=== PATIENT | female | born 1945 | race Caucasian/White ===

== ENCOUNTER 2017-07-02 04:08 | Emergency (ER) | payer MEDICARE, OTHER, SELFPAY | END 2017-07-02 05:58 | disposition home or self-care (01) | PROVIDERS: Emergency Provider Emergency Medicine; Family Provider Family Medicine; PCP Family Medicine; Visit Provider Emergency Medicine | DX: R25.1 Tremor, unspecified (principal) | CPT/HCPCS: 99283 ==

== ENCOUNTER → 2017-07-16 18:02 | Outpatient (CLI) | payer MEDICARE, OTHER, SELFPAY | PROVIDERS: PCP Family Medicine; Visit Provider Student in an Organized Health Care Education/Training Program | DX: N05.9 Unspecified nephritic syndrome with unspecified morphologic changes (principal); R80.9 Proteinuria, unspecified; D64.9 Anemia, unspecified; N25.81 Secondary hyperparathyroidism of renal origin ==

== ENCOUNTER → 2017-10-10 12:47 | Outpatient (CLI) | payer MEDICARE, OTHER, SELFPAY ==
--- NOTE | 2017-10-10 | DI.MRI.S_ITS ---
PROCEDURE: MR HEAD/BRAIN WO CON INDICATIONS: DEMENTIA CVA TECHNIQUE: Non-contrast axial T1 spin echo, axial T2 fast spin echo, sagittal and axial FLAIR, coronal T2 fast spin echo, axial gradient echo, axial diffusion and ADC through the brain. COMPARISON: [facility], MR, BRAIN WITHOUT CONTRAST, 03/03/2014, 19:29. FINDINGS: Image quality: Diagnostic, with note made of motion artifact. CSF spaces: Ventricles appear symmetric in size and shape. Basal cisterns are patent. No extra-axial fluid collections. Brain: No intracranial bleeds or mass effects. There is cerebral volume loss for age. There are periventricular and deep white matter chronic small vessel ischemic changes. Brainstem appears normal. Diffusion-weighted images show no acute ischemic insults. No chronic ischemic insults. Normal intravascular flow voids are present. Skull and face: Calvarial bone marrow is normal in signal. Orbits are normal. Note is made of bilateral lens replacements. Sinuses: Sinuses and mastoids are clear. IMPRESSION: Unremarkable imaging study for age, without acute or subacute infarctions. Note is made of age-appropriate brain parenchymal volume loss and chronic small vessel ischemic changes. Dictated by: Lowell Devine M.D. on 10/10/2017 at 12:59 Approved by: Lowell Devine M.D. on 10/10/2017 at 13:01
== END ==
PROVIDERS: Family Provider Family Medicine; PCP Family Medicine; Visit Provider Specialist
DX: I63.9 Cerebral infarction, unspecified (principal); F03.90 Unspecified dementia, unspecified severity, without behavioral disturbance, psychotic disturbance, mood disturbance, and anxiety
CPT/HCPCS: 70551

== ENCOUNTER → 2017-11-05 11:15 | Outpatient (CLI) | payer MEDICARE, OTHER, SELFPAY ==
[2017-11-05 12:21] LABS: Hematocrit 36.1 % (36-46); Hemoglobin 12.1 g/dL (12.0-16.0)
[2017-11-05 12:55] LABS: BUN Creatinine Ratio 24.6 (6-22); Blood Urea Nitrogen 32 mg/dL (7-17); Calcium 10.6 mg/dL (8.4-10.2); Carbon Dioxide 32 mmol/L (22-32); Chloride 98 mmol/L (98-107); Estimated Glomerular Filt Rate 40.4 mL/min (>60); Glucose 94 mg/dL (80-110); HEMOLYSIS < 15 (0-50); Potassium 4.3 mmol/L (3.4-5.1); Sodium 142 mmol/L (137-145)
[2017-11-05 16:04] LABS: Creatinine Urine Random 57.5 mg/dL; Protein (Total) Urine Random 11 mg/dL (0-12); Protein Creatinine Ratio Urine 0.19 GRAM/24H
== END ==
PROVIDERS: PCP Family Medicine; Visit Provider Student in an Organized Health Care Education/Training Program
DX: N05.9 Unspecified nephritic syndrome with unspecified morphologic changes (principal); R80.9 Proteinuria, unspecified; D64.9 Anemia, unspecified
CPT/HCPCS: 36415; 80048; 82570; 84156; 85014; 85018

== ENCOUNTER → 2017-11-14 10:11 | Outpatient (CLI) | payer MEDICARE, OTHER, SELFPAY ==
[2017-11-14 10:20] LABS: Bacteria Urine None Seen; RBC Urine None Seen (0-5/HPF); WBC Urine None Seen (0-5/HPF)
[2017-11-14 11:16] LABS: Appearance Urine UA CLEAR; Bilirubin Urine UA NEGATIVE (NEGATIVE); Color Urine UA YELLOW; Glucose Urine UA NEGATIVE (Normal); Ketones Urine UA NEGATIVE (NEGATIVE); Leukocyte Esterase Urine UA NEGATIVE (NEGATIVE); Nitrite Urine UA Negative (Negative); Occult Blood Urine UA NEGATIVE (Negative); Protein Urine UA NEGATIVE (Negative); Urobilinogen Urine UA 0.2 E.U./dL (0.2)
[2017-11-14 11:24] LABS: Culture Indicated Urine Cult Not Indicated
[2017-11-14 11:25] LABS: Urine Comments Microscopic Normal
== END ==
PROVIDERS: PCP Family Medicine; Visit Provider Student in an Organized Health Care Education/Training Program
DX: N30.00 Acute cystitis without hematuria (principal)
CPT/HCPCS: 81001; 87086

== ENCOUNTER → 2017-11-15 12:19 | Outpatient (CLI) | payer MEDICARE, OTHER, SELFPAY ==
[2017-11-15 15:14] LABS: Creatinine Urine Random 24.6 mg/dL; Protein (Total) Urine Random 12 mg/dL (0-12); Protein Creatinine Ratio Urine 0.48 GRAM/24H
== END ==
PROVIDERS: PCP Family Medicine; Visit Provider Student in an Organized Health Care Education/Training Program
DX: R80.9 Proteinuria, unspecified (principal)
CPT/HCPCS: 82570; 84156

== ENCOUNTER → 2018-02-22 11:07 | Outpatient (CLI) | payer MEDICARE, OTHER, SELFPAY ==
--- NOTE | 2018-02-28 11:53 | PM.PFT.1 ---
Pulmonary Function Test Referral & Results Date Patient Seen: 02/22/18 Requesting provider: Josef Jolly Indication: Sarcoidosis, COPD Results: The spirometry demonstrates an FVC of 1.71 L which is 63% of predicted. The FEV1 was measured at 1.32 L which is 65% of predicted. The FEV1/FVC ratio was 77 which is 101% of predicted. No bronchodilator was administered Lung volumes show an SVC of 1.71 L which is 65% of predicted. The diffusing capacity was measured at 13.50 which is 62% of predicted. No hemoglobin value was provided, so no correction for potential anemia could be made, if appropriate. The maximum voluntary ventilation was reduced Interpretation: This study demonstrates moderately severe obstructive lung disease as well as moderately severe restrictive lung disease there is also significant reduction in diffusing capacity suggesting significant disease at the capillary alveolar level Compared to PFTs performed in December 2013, current spirometry shows a decline with previous FEV1 being 1.61 L currently 1.32 L Diffusing capacity is however essentially unchanged since 2013 Clinical correlation suggested
== END ==
PROVIDERS: PCP Family Medicine; Visit Provider Internal Medicine Cardiovascular Disease
DX: J44.9 Chronic obstructive pulmonary disease, unspecified (principal)
CPT/HCPCS: 94010; 94726; 94729

== ENCOUNTER → 2018-03-03 12:00 | Outpatient (CLI) | payer MEDICARE, OTHER, SELFPAY ==
[2018-03-03 12:25] LABS: Hematocrit 37.5 % (36-46); Hemoglobin 12.4 g/dL (12.0-16.0)
[2018-03-03 12:38] LABS: BUN Creatinine Ratio 27.5 (6-22); Blood Urea Nitrogen 33 mg/dL (7-17); Calcium 9.6 mg/dL (8.4-10.2); Carbon Dioxide 25 mmol/L (22-32); Chloride 102 mmol/L (98-107); Estimated Glomerular Filt Rate 44.3 mL/min (>60); Glucose 89 mg/dL (80-110); HEMOLYSIS < 15 (0-50); Potassium 4.2 mmol/L (3.4-5.1); Sodium 142 mmol/L (137-145)
[2018-03-09 12:29] LABS: Parathyroid Hormone Int 211 pg/mL (14-64)
== END ==
PROVIDERS: PCP Family Medicine; Visit Provider Student in an Organized Health Care Education/Training Program
DX: N05.9 Unspecified nephritic syndrome with unspecified morphologic changes (principal); D64.9 Anemia, unspecified; N25.81 Secondary hyperparathyroidism of renal origin; R80.9 Proteinuria, unspecified
CPT/HCPCS: 36415; 80048; 83970; 85014; 85018

== ENCOUNTER → 2018-03-04 11:18 | Outpatient (CLI) | payer MEDICARE, OTHER, SELFPAY ==
[2018-03-04 13:07] LABS: Creatinine Urine Random 38.8 mg/dL; Protein (Total) Urine Random 14 mg/dL (0-12); Protein Creatinine Ratio Urine 0.36 GRAM/24H
== END ==
PROVIDERS: PCP Family Medicine; Visit Provider Student in an Organized Health Care Education/Training Program
DX: R80.9 Proteinuria, unspecified (principal)
CPT/HCPCS: 82570; 84156

== ENCOUNTER 2018-03-28 13:32 | Emergency (ER) | payer MEDICARE, OTHER, SELFPAY ==
[2018-03-28 13:40] VITALS: BP 173/75; PULSE 82; RESP 23; TEMP 36.4; O2SAT 93
[2018-03-28 14:00] VITALS: BP 152/54; PULSE 77; RESP 16; O2SAT 96
[2018-03-28 14:20] LABS: Add Manual Diff / Slide Review NO; Basophils Absolute Auto 100 /uL (0-100); Eosinophils Absolute Auto 100 /uL (0-450); Eosinophils Percent Auto 1.5 % (2-4); Hematocrit 38.8 % (36-46); Hemoglobin 12.7 g/dL (12.0-16.0); Lymphocytes Absolute Auto 2000 /uL (1100-4500); Lymphocytes Percent Auto 30.7 % (25-40); Mean Corpuscular HGB Conc 32.6 % (30-36); Mean Corpuscular Hemoglobin 30.5 PG (26-34); Mean Corpuscular Volume 93.5 fL (80-100); Monocytes Absolute Auto 800 /uL (0-900); Monocytes Percent Auto 12.3 % (3-14); Neutrophils Absolute Auto 3600 /uL (1500-7000); Neutrophils Percent Auto 54.5 % (50-75); Platelet Count 249 X10^3/uL (150-400); Red Blood Cell Count 4.15 X10^6/uL (4.0-5.2); Red Cell Distribution Width 15.3 % (11.6-14.8); White Blood Cell Count 6.7 X10^3/uL (4.5-11.0)
[2018-03-28 14:29] LABS: Blood Urea Nitrogen 27 mg/dL (7-17); Calcium 9.8 mg/dL (8.4-10.2); Carbon Dioxide 27 mmol/L (22-32); Chloride 102 mmol/L (98-107); Estimated Glomerular Filt Rate > 60.0 mL/min (>60); Glucose 111 mg/dL (80-110); HEMOLYSIS 18 (0-50); Magnesium 1.6 mg/dL (1.6-2.3); Potassium 3.7 mmol/L (3.4-5.1); Sodium 139 mmol/L (137-145)
[2018-03-28 14:30] VITALS: BP 126/42; PULSE 60; RESP 16; O2SAT 96
--- NOTE | 2018-03-28 14:30 | ED.SEIZURE ---
HPI - Seizure General Chief Complaint: Seizure Stated Complaint: DIFFICULTY BREATHING, TREMORS Time Seen by Provider: 03/28/18 14:00 Source: patient and family Mode of arrival: ambulatory Limitations: no limitations History of Present Illness HPI Narrative: 73-year-old female, nonsmoker with history resting tremors, sarcoid presents with her with a chief complaint of worsening tremors and seizure-like activity over the past 5 months but a profound slip box changer the past 2 weeks. She has been taking 2 medications at 1 point helped this resting tremor but seem to be losing their effectiveness. The patient complains of the occasional headache and shortness of breath which are both unfortunately rather chronic for her. She denies chest pain and is not dizzy nor weak or lightheaded. Patient denies any fever chills but does have some mild nausea. Related Data Home Medications Medication Instructions Recorded Confirmed bumetanide 2 mg PO BID #0 03/17/16 03/28/18 benzonatate [Tessalon Perles] 100 mg PO BID #0 08/12/16 03/28/18 metoprolol tartrate 100 mg PO BID #0 08/12/16 03/28/18 ondansetron 4 mg PO PRN PRN #0 08/12/16 03/28/18 atorvastatin 80 mg tablet 80 mg PO DAILY 11/22/17 03/28/18 clopidogrel 75 mg tablet 75 mg PO DAILY 11/22/17 03/28/18 losartan 25 mg tablet 25 mg PO BEDTIME 11/22/17 03/28/18 oxycodone-acetaminophen 7.5 mg-325 1 tab PO Q6H PRN 11/22/17 03/28/18 mg tablet pregabalin 200 mg capsule 200 mg PO TID 11/22/17 03/28/18 sildenafil (antihypertensive) 20 20 mg PO TID 11/22/17 03/28/18 mg tablet L.acidophilus-Bifido.longum 1 cap PO QPM 03/28/18 03/28/18 [Probiotic Pearls] acetaminophen 1,000 mg PO TID 03/28/18 03/28/18 aspirin 81 mg PO QNOON 03/28/18 03/28/18 budesonide-formoterol [Symbicort] 2 puff INHALATION BID PRN 03/28/18 03/28/18 chlorzoxazone 500 mg PO BID 03/28/18 03/28/18 diphenhydramine-acetaminophen 2 tab PO BEDTIME 03/28/18 03/28/18 [Tylenol PM Extra Strength] estradiol-norethindrone acet 1 tab PO BEDTIME 03/28/18 03/28/18 [Mimvey] fexofenadine-pseudoephedrine 1 tab PO DAILY 03/28/18 03/28/18 [[place]-D 24 Hour] folic acid 1 mg PO QNOON 03/28/18 03/28/18 ipratropium-albuterol 3 ml INH Q4H PRN 03/28/18 03/28/18 magnesium 250 mg PO QNOON 03/28/18 03/28/18 omega-3 fatty acids-fish oil [Fish 300 mg PO BEDTIME 03/28/18 03/28/18 Oil] pantoprazole [Protonix] 40 mg PO BEDTIME 03/28/18 03/28/18 soy isofla-blk cohosh-mag bark 1 cap PO BEDTIME 03/28/18 03/28/18 [Estroven] tramadol 50 mg PO TID 03/28/18 03/28/18 Previous Rx's Medication Instructions Recorded nitrofurantoin monohyd/m-cryst 100 mg PO BID #14 cap 03/28/18 [Macrobid] primidone 50 mg PO BEDTIME #30 tab 03/28/18 Allergies Allergy/AdvReac Type Severity Reaction Status Date / Time tetanus toxoid, adsorbed Allergy Severe severe Verified 03/28/18 13:50 [TETANUS TOXOID, ADSORBED] swelling amoxicillin [From AUGMENTIN] Allergy Mild rash Verified 03/28/18 13:50 clavulanic acid Allergy Mild rash Verified 03/28/18 13:50 [From AUGMENTIN] lisinopril [LISINOPRIL] Allergy Mild cough Verified 03/28/18 13:50 pneumococcal vaccine Allergy Mild Severe arm Verified 03/28/18 13:50 [PNEUMOCOCCAL VACCINE] swelling minocycline [MINOCYCLINE] Allergy Unknown Verified 03/28/18 13:50 morphine [MORPHINE] Allergy Unknown Verified 03/28/18 13:50 sulindac [SULINDAC] Allergy Unknown Verified 03/28/18 13:50 tioconazole [TIOCONAZOLE] Allergy Unknown BURNING Verified 03/28/18 13:50 carisoprodol [CARISOPRODOL] AdvReac Mild numbness Verified 03/28/18 13:50 clotrimazole [CLOTRIMAZOLE] AdvReac Mild burning Verified 03/28/18 13:50 codeine [CODEINE] AdvReac Mild hallucinati Verified 03/28/18 13:50 ons miconazole [MICONAZOLE] AdvReac Mild intense Verified 03/28/18 13:50 burning nifedipine [NIFEDIPINE] AdvReac Mild flushing Verified 03/28/18 13:50 phenazopyridine AdvReac Mild extreme Verified 03/28/18 13:50 [PHENAZOPYRIDINE] fatigue Review of Systems Constitutional Denies chills, Denies fever(s), Denies lethargy and Denies weakness Eyes Denies change in vision, Denies eye discharge, Denies irritation and Denies loss of vision ENT Ears, Nose, Mouth, and Throat: Denies change in voice, Denies neck pain and Denies sore throat Cardiovascular Denies chest pain, Denies irregular heart rhythm, Denies lightheadedness, Denies palpitations, Denies dyspnea, Denies dyspnea on exertion and Denies orthopnea Respiratory Denies cough, Denies dyspnea, Denies dyspnea on exertion and Denies wheezing Gastrointestinal Gastrointestinal: Denies abdominal pain, Denies change in bowel habits, Denies diarrhea, Denies nausea and Denies vomiting Genitourinary Denies hematuria, Denies flank pain, Denies urinary incontinence and Denies urinary urgency Musculoskeletal Denies neck pain Integumentary/Breasts Denies pruritus, Denies erythema, Denies rash and Denies wounds Neurologic Denies confusion, Denies loss of vision, Reports tremor(s) and Denies weakness Psychiatric Denies anxiety, Denies confusion, Denies depression, Denies homicidal ideation and Denies suicidal ideation Endocrine Denies palpitations Hematologic/Lymphatic Denies easy bruising Allergic/Immunologic Denies wheezing [facility] Medical History Coronary artery disease (Chronic) Fibromyalgia (Chronic) Hypertension (Chronic) Leukocytosis (Chronic) Oxygen dependent (Chronic) Sarcoidosis (Chronic) Tachycardia (Chronic) Surgical History History of surgery (Resolved ~2015) Status post surgery (03/15/10) Social History marital status: Smoking Status: Never smoker alcohol intake: never substance use type: does not use Exam Narrative Exam Narrative: GENERAL: This is a well-nourished, well-developed patient, in mild distress. HEAD: 73-year-old female, resting comfortably, visibly frustrated from her resting tremor EYES: Pupils equal round and reactive. Extraocular motions intact. No scleral icterus. No injection or drainage. Obese ENT: Nose without bleeding, purulent drainage or septal hematoma. Throat without erythema, tonsillar hypertrophy or exudate. Uvula midline. Airway patent. NECK: Trachea midline. No JVD or lymphadenopathy. Supple, nontender, no meningeal signs. CARDIOVASCULAR: Regular rate and rhythm without murmurs, gallops, or rubs. RESPIRATORY: Clear to auscultation. Breath sounds equal bilaterally. No wheezes, rales, or rhonchi. GASTROINTESTINAL: Abdomen soft, non-tender, nondistended. No hepato-splenomegaly, or palpable masses. No guarding. EXTREMITIES: No clubbing, cyanosis, or edema. No joint tenderness, effusion, or edema noted. BACK: Nontender without deformity or crepitance. No flank tenderness. NEURO: AOx3. Resting tremor SKIN: No rash or erythema. Initial Vital Signs Initial Vital Signs: Vital Signs Temperature 97.5 F L 03/28/18 13:40 Pulse Rate 82 03/28/18 13:40 Respiratory Rate 23 03/28/18 13:40 Blood Pressure 173/75 H 03/28/18 13:40 Pulse Oximetry 93 03/28/18 13:40 Course Orders Ordered: ED Orders 03/28/18 14:09 B Type Natriuretic Peptide Stat Basic Metabolic Panel Stat Complete Blood Count AUTO DIFF Stat Magnesium Stat Prolactin Stat Troponin & CK Cardiac Panel Stat 03/28/18 14:54 XR chest 1V Stat Consultations Consultation #1: call to [facility], whom recommends addition of Primidone and follow up within 7 days Vital Signs - 8 hr 03/28/18 13:40 03/28/18 14:00 03/28/18 14:30 Temperature 97.5 F L Pulse Rate 82 77 60 Respiratory Rate 23 16 16 Blood Pressure 173/75 H Blood Pressure [Left Arm] 152/54 H 126/42 L Pulse Oximetry 93 96 96 03/28/18 15:00 03/28/18 15:47 Temperature Pulse Rate 72 78 Respiratory Rate 22 14 Blood Pressure Blood Pressure [Left Arm] 143/67 H 161/59 H Pulse Oximetry 95 97 MDM - Seizure Lab Data Result diagrams: 03/28/18 14:09 03/28/18 14:09 Lab Results 03/28/18 03/28/18 03/28/18 Range/Units 14:09 14:09 14:09 WBC 6.7 (4.5-11.0) X10^3/uL RBC 4.15 (4.0-5.2) X10^6/uL Hgb 12.7 (12.0-16.0) g/dL Hct 38.8 (36-46) % MCV 93.5 (80-100) fL MCH 30.5 (26-34) PG MCHC 32.6 (30-36) % RDW 15.3 H (11.6-14.8) % Plt Count 249 (150-400) X10^3/uL Neut % (Auto) 54.5 (50-75) % Lymph % (Auto) 30.7 (25-40) % [place] % (Auto) 12.3 (3-14) % Eos % (Auto) 1.5 L (2-4) % Baso % (Auto) 1.0 (0-2) % Neut # (Auto) 3600 (5474-2691) /uL Lymph # (Auto) 2000 (6873-7370) /uL [place] # (Auto) 800 (0-900) /uL Eos # (Auto) 100 (0-450) /uL Baso # (Auto) 100 (0-100) /uL Sodium 139 (137-145) mmol/L Potassium 3.7 (3.4-5.1) mmol/L Chloride 102 (98-107) mmol/L Carbon Dioxide 27 (22-32) mmol/L BUN 27 H (7-17) mg/dL Creatinine 0.90 (0.52-1.04) mg/dL Estimated GFR > 60.0 (>60) mL/min BUN/Creatinine Ratio 30.0 H (6-22) Glucose 111 H (80-110) mg/dL Calcium 9.8 (8.4-10.2) mg/dL Magnesium 1.6 (1.6-2.3) mg/dL Total Creatine Kinase 32 (30-135) U/L CK-MB (CK-2) TNP CK-MB (CK-2) Rel Index TNP Troponin I 0.056 H (0.01-0.034) ng/mL B-Natriuretic Peptide (<100) Prolactin 19.4 H (3.0-18.6) ng/mL Urine RBC (0-5/HPF) Urine WBC (0-5/HPF) Ur Squamous Epith Cells Urine Bacteria (None) Ur Culture Indicated? 03/28/18 03/28/18 Range/Units 14:09 Unknown WBC (4.5-11.0) X10^3/uL RBC (4.0-5.2) X10^6/uL Hgb (12.0-16.0) g/dL Hct (36-46) % MCV (80-100) fL MCH (26-34) PG MCHC (30-36) % RDW (11.6-14.8) % Plt Count (150-400) X10^3/uL Neut % (Auto) (50-75) % Lymph % (Auto) (25-40) % [place] % (Auto) (3-14) % Eos % (Auto) (2-4) % Baso % (Auto) (0-2) % Neut # (Auto) (7859-1763) /uL Lymph # (Auto) (4816-9924) /uL [place] # (Auto) (0-900) /uL Eos # (Auto) (0-450) /uL Baso # (Auto) (0-100) /uL Sodium (137-145) mmol/L Potassium (3.4-5.1) mmol/L Chloride (98-107) mmol/L Carbon Dioxide (22-32) mmol/L BUN (7-17) mg/dL Creatinine (0.52-1.04) mg/dL Estimated GFR (>60) mL/min BUN/Creatinine Ratio (6-22) Glucose (80-110) mg/dL Calcium (8.4-10.2) mg/dL Magnesium (1.6-2.3) mg/dL Total Creatine Kinase (30-135) U/L CK-MB (CK-2) CK-MB (CK-2) Rel Index Troponin I (0.01-0.034) ng/mL B-Natriuretic Peptide < 100 (<100) Prolactin (3.0-18.6) ng/mL Urine RBC None seen (0-5/HPF) Urine WBC 5-10/hpf H (0-5/HPF) Ur Squamous Epith Cells 5-10 /hpf H Urine Bacteria Moderate (10-30) H (None) Ur Culture Indicated? Cult not indicated Urine Dip Bedside Urine Glucose Negative Bedside Urine Bilirubin - Negative Bedside Urine Ketone - Negative Urine Specific [place] 1.015 Bedside Urine Occult Blood - Negative Bedside Urine pH 6.0 Bedside Urine Protein - Negative Bedside Urine Urobilinogen - Negative Bedside Urine Nitrite - Negative Bedside Urine Leukocytes ++ 125 Esterase Discharge Plan Departure Patient Disposition: Home Clinical Impression: Tremor Discharge Date/Time: 03/28/18 16:23 Interventions: ED Discharge Assessment Last Done: 03/28/18 15:54 Instructions: DI for Benign Essential Tremor Activity Restrictions/Additional Instructions: *You have been diagnosed with [ worsening generalized tremor] *What to do: *Take medications as directed: Prescription has been electronically transmitted to [employer] at your request *Follow up with your primary care provider in 2-3 days, call for an appointment. Let them know you were seen in the Emergency Department and that we ask that you be seen in follow up *Return to ER if you should have any new, worsening or concerning symptoms Prescriptions: New primidone 50 mg tablet 50 mg PO BEDTIME Qty: 30 RF: 0 nitrofurantoin monohyd/m-cryst [Macrobid] 100 mg capsule 100 mg PO BID Qty: 14 RF: 0 No Action bumetanide 1 MG tablet 2 mg PO BID Qty: 0 RF: 0 benzonatate [Tessalon Perles] 100 MG capsule 100 mg PO BID Qty: 0 RF: 0 metoprolol tartrate 100 MG tablet 100 mg PO BID Qty: 0 RF: 0 ondansetron 4 MG tablet,disintegrating 4 mg PO PRN PRN (Reason: Nausea) Qty: 0 RF: 0 atorvastatin 80 mg tablet 80 mg PO DAILY RF: 0 pregabalin [Lyrica] 200 mg capsule 200 mg PO TID RF: 0 losartan 25 mg tablet 25 mg PO BEDTIME RF: 0 sildenafil (antihypertensive) 20 mg tablet 20 mg PO TID RF: 0 oxycodone-acetaminophen 7.5-325 mg tablet 1 tab PO Q6H PRN (Reason: PAIN) RF: 0 clopidogrel [Plavix] 75 mg tablet 75 mg PO DAILY RF: 0 chlorzoxazone 500 mg tablet 500 mg PO BID RF: 0 aspirin 81 mg Tablet,Delayed Release (Dr/Ec) 81 mg PO QNOON RF: 0 acetaminophen 500 mg Tablet 1,000 mg PO TID RF: 0 magnesium 250 mg Tablet 250 mg PO QNOON RF: 0 diphenhydramine-acetaminophen [Tylenol PM Extra Strength] 25-500 mg Tablet 2 tab PO BEDTIME RF: 0 omega-3 fatty acids-fish oil [Fish Oil] 300-1,000 mg Capsule 300 mg PO BEDTIME RF: 0 budesonide-formoterol [Symbicort] 160-4.5 mcg/actuation Hfa Aerosol Inhaler 2 puff INHALATION BID PRN (Reason: Shortness Of Breath) RF: 0 L.acidophilus-Bifido.longum [Probiotic Pearls] 15 mg (1 billion cell) Capsule,Delayed Release(Dr/Ec) 1 cap PO QPM RF: 0 soy isofla-blk cohosh-mag bark [Estroven] 155 mg Capsule 1 cap PO BEDTIME RF: 0 ipratropium-albuterol 3 ML solution for nebulization 3 ml INH Q4H PRN (Reason: Shortness Of Breath) RF: 0 estradiol-norethindrone acet [Mimvey] 1-0.5 mg tablet 1 tab PO BEDTIME RF: 0 tramadol 50 MG tablet 50 mg PO TID RF: 0 pantoprazole [Protonix] 40 MG tablet,delayed release (DR/EC) 40 mg PO BEDTIME RF: 0 folic acid 1 mg tablet 1 mg PO QNOON RF: 0 fexofenadine-pseudoephedrine [[place]-D 24 Hour] 180-240 mg tablet extended release 24 hr 1 tab PO DAILY RF: 0 Referrals: Pedro Lynn MD [Primary Care Provider] -
[2018-03-28 14:46] LABS: Prolactin 19.4 ng/mL (3.0-18.6)
--- NOTE | 2018-03-28 14:54 | DI.RAD.S_ITS ---
PROCEDURE: XR CHEST 1V INDICATIONS: shortness of breath TECHNIQUE: One view of the chest was acquired. COMPARISON: [facility], , CHEST 1 VIEW, 08/12/2016, 17:10. FINDINGS: Surgical changes and devices: None. Lungs and pleura: No pleural effusions or pneumothorax. Lungs are clear. Mediastinum: Mediastinal contours appear normal. Heart size is normal. Probable coronary calcifications project over the left heart are not changed compared to the prior examination.. Bones and chest wall: No suspicious bony lesions. Overlying soft tissues appear unremarkable. IMPRESSION: No acute cardiopulmonary disease process. Dictated by: Stacey Cheng MD, PhD on 03/28/2018 at 16:06 Approved by: Stacey Cheng MD, PhD on 03/28/2018 at 16:16
[2018-03-28 15:00] VITALS: BP 143/67; PULSE 71; PULSE 72; RESP 15; RESP 22; O2SAT 95
--- NOTE | 2018-03-28 15:07 | ED_ITS ---
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 She has been taking 2 medications at 1 point helped this resting tremor but seem to be losing their effectiveness. The patient complains of the occasional headache and shortness of breath which are both unfortunately rather chronic for her. She denies chest pain and is not dizzy nor weak or lightheaded. Patient denies any fever chills but does have some mild nausea. Related Data Home Medications Medication Instructions Recorded Confirmed bumetanide 2 mg PO BID #0 03/17/16 03/28/18 benzonatate [Tessalon Perles] 100 mg PO BID #0 08/12/16 03/28/18 metoprolol tartrate 100 mg PO BID #0 08/12/16 03/28/18 ondansetron 4 mg PO PRN PRN #0 08/12/16 03/28/18 atorvastatin 80 mg tablet 80 mg PO DAILY 11/22/17 03/28/18 clopidogrel 75 mg tablet 75 mg PO DAILY 11/22/17 03/28/18 losartan 25 mg tablet 25 mg PO BEDTIME 11/22/17 03/28/18 oxycodone-acetaminophen 7.5 mg-325 1 tab PO Q6H PRN 11/22/17 03/28/18 mg tablet pregabalin 200 mg capsule 200 mg PO TID 11/22/17 03/28/18 sildenafil (antihypertensive) 20 20 mg PO TID 11/22/17 03/28/18 mg tablet L.acidophilus-Bifido.longum 1 cap PO QPM 03/28/18 03/28/18 [Probiotic Pearls] acetaminophen 1,000 mg PO TID 03/28/18 03/28/18 aspirin 81 mg PO QNOON 03/28/18 03/28/18 budesonide-formoterol [Symbicort] 2 puff INHALATION BID PRN 03/28/18 03/28/18 chlorzoxazone 500 mg PO BID 03/28/18 03/28/18 diphenhydramine-acetaminophen 2 tab PO BEDTIME 03/28/18 03/28/18 [Tylenol PM Extra Strength] estradiol-norethindrone acet 1 tab PO BEDTIME 03/28/18 03/28/18 [Mimvey] fexofenadine-pseudoephedrine 1 tab PO DAILY 03/28/18 03/28/18 [Keya-D 24 Hour] folic acid 1 mg PO QNOON 03/28/18 03/28/18 ipratropium-albuterol 3 ml INH Q4H PRN 03/28/18 03/28/18 magnesium 250 mg PO QNOON 03/28/18 03/28/18 omega-3 fatty acids-fish oil [Fish 300 mg PO BEDTIME 03/28/18 03/28/18 Oil] pantoprazole [Protonix] 40 mg PO BEDTIME 03/28/18 03/28/18 soy isofla-blk cohosh-mag bark 1 cap PO BEDTIME 03/28/18 03/28/18 [Estroven] tramadol 50 mg PO TID 03/28/18 03/28/18 Previous Rx's Medication Instructions Recorded nitrofurantoin monohyd/m-cryst 100 mg PO BID #14 cap 03/28/18 [Macrobid] primidone 50 mg PO BEDTIME #30 tab 03/28/18 Allergies Allergy/AdvReac Type Severity Reaction Status Date / Time tetanus toxoid, adsorbed Allergy Severe severe Verified 03/28/18 13:50 [TETANUS TOXOID, ADSORBED] swelling amoxicillin [From AUGMENTIN] Allergy Mild rash Verified 03/28/18 13:50 clavulanic acid Allergy Mild rash Verified 03/28/18 13:50 [From AUGMENTIN] lisinopril [LISINOPRIL] Allergy Mild cough Verified 03/28/18 13:50 pneumococcal vaccine Allergy Mild Severe arm Verified 03/28/18 13:50 [PNEUMOCOCCAL VACCINE] swelling minocycline [MINOCYCLINE] Allergy Unknown Verified 03/28/18 13:50 morphine [MORPHINE] Allergy Unknown Verified 03/28/18 13:50 sulindac [SULINDAC] Allergy Unknown Verified 03/28/18 13:50 tioconazole [TIOCONAZOLE] Allergy Unknown BURNING Verified 03/28/18 13:50 carisoprodol [CARISOPRODOL] AdvReac Mild numbness Verified 03/28/18 13:50 clotrimazole [CLOTRIMAZOLE] AdvReac Mild burning Verified 03/28/18 13:50 codeine [CODEINE] AdvReac Mild hallucinati Verified 03/28/18 13:50 ons miconazole [MICONAZOLE] AdvReac Mild intense Verified 03/28/18 13:50 burning nifedipine [NIFEDIPINE] AdvReac Mild flushing Verified 03/28/18 13:50 phenazopyridine AdvReac Mild extreme Verified 03/28/18 13:50 [PHENAZOPYRIDINE] fatigue Review of Systems Constitutional Denies chills, Denies fever(s), Denies lethargy and Denies weakness Eyes Denies change in vision, Denies eye discharge, Denies irritation and Denies loss of vision ENT Ears, Nose, Mouth, and Throat: Denies change in voice, Denies neck pain and Denies sore throat Cardiovascular Denies chest pain, Denies irregular heart rhythm, Denies lightheadedness, Denies palpitations, Denies dyspnea, Denies dyspnea on exertion and Denies orthopnea Respiratory Denies cough, Denies dyspnea, Denies dyspnea on exertion and Denies wheezing Gastrointestinal Gastrointestinal: Denies abdominal pain, Denies change in bowel habits, Denies diarrhea, Denies nausea and Denies vomiting Genitourinary Denies hematuria, Denies flank pain, Denies urinary incontinence and Denies urinary urgency Musculoskeletal Denies neck pain Integumentary/Breasts Denies pruritus, Denies erythema, Denies rash and Denies wounds Neurologic Denies confusion, Denies loss of vision, Reports tremor(s) and Denies weakness Psychiatric Denies anxiety, Denies confusion, Denies depression, Denies homicidal ideation and Denies suicidal ideation Endocrine Denies palpitations Hematologic/Lymphatic Denies easy bruising Allergic/Immunologic Denies wheezing [facility] History Coronary artery disease (Chronic) Fibromyalgia (Chronic) Hypertension (Chronic) Leukocytosis (Chronic) Oxygen dependent (Chronic) Sarcoidosis (Chronic) Tachycardia (Chronic) Surgical History History of surgery (Resolved ~2015) Status post surgery (03/15/10) Social History marital status: Smoking Status: Never smoker alcohol intake: never substance use type: does not use Exam Narrative Exam Narrative: GENERAL: This is a well-nourished, well-developed patient, in mild distress. HEAD: 73-year-old female, resting comfortably, visibly frustrated from her resting tremor EYES: Pupils equal round and reactive. Extraocular motions intact. No scleral icterus. No injection or drainage. Obese ENT: Nose without bleeding, purulent drainage or septal hematoma. Throat without erythema, tonsillar hypertrophy or exudate. Uvula midline. Airway patent. NECK: Trachea midline. No JVD or lymphadenopathy. Supple, nontender, no meningeal signs. CARDIOVASCULAR: Regular rate and rhythm without murmurs, gallops, or rubs. RESPIRATORY: Clear to auscultation. Breath sounds equal bilaterally. No wheezes , rales, or rhonchi. GASTROINTESTINAL: Abdomen soft, non-tender, nondistended. No hepato-splenomegaly , or palpable masses. No guarding. EXTREMITIES: No clubbing, cyanosis, or edema. No joint tenderness, effusion, or edema noted. BACK: Nontender without deformity or crepitance. No flank tenderness. NEURO: AOx3. Resting tremor SKIN: No rash or erythema. Initial Vital Signs Initial Vital Signs: Vital Signs Temperature 97.5 F L 03/28/18 13:40 Pulse Rate 82 03/28/18 13:40 Respiratory Rate 23 03/28/18 13:40 Blood Pressure 173/75 H 03/28/18 13:40 Pulse Oximetry 93 03/28/18 13:40 Course Orders Ordered: ED Orders 03/28/18 14:09 B Type Natriuretic Peptide Stat Basic Metabolic Panel Stat Complete Blood Count AUTO DIFF Stat Magnesium Stat Prolactin Stat Troponin & CK Cardiac Panel Stat 03/28/18 14:54 XR chest 1V Stat Consultations Consultation #1: call to [facility], whom recommends addition of Primidone and follow up within 7 days Vital Signs - 8 hr 03/28/18 13:40 03/28/18 14:00 03/28/18 14:30 Temperature 97.5 F L Pulse Rate 82 77 60 Respiratory Rate 23 16 16 Blood Pressure 173/75 H Blood Pressure [Left Arm] 152/54 H 126/42 L Pulse Oximetry 93 96 96 03/28/18 15:00 03/28/18 15:47 Temperature Pulse Rate 72 78 Respiratory Rate 22 14 Blood Pressure Blood Pressure [Left Arm] 143/67 H 161/59 H Pulse Oximetry 95 97 MDM - Seizure Lab Data Result diagrams: 03/28/18 14:09 03/28/18 14:09 Lab Results 03/28/18 03/28/18 03/28/18 Range/Units 14:09 14:09 14:09 WBC 6.7 (4.5-11.0) X10^3/uL RBC 4.15 (4.0-5.2) X10^6/uL Hgb 12.7 (12.0-16.0) g/dL Hct 38.8 (36-46) % MCV 93.5 (80-100) fL MCH 30.5 (26-34) PG MCHC 32.6 (30-36) % RDW 15.3 H (11.6-14.8) % Plt Count 249 (150-400) X10^3/uL Neut % (Auto) 54.5 (50-75) % Lymph % (Auto) 30.7 (25-40) % Posey % (Auto) 12.3 (3-14) % Eos % (Auto) 1.5 L (2-4) % Baso % (Auto) 1.0 (0-2) % Neut # (Auto) 3600 (6649-6580) /uL Lymph # (Auto) 2000 (0442-5723) /uL Posey # (Auto) 800 (0-900) /uL Eos # (Auto) 100 (0-450) /uL Baso # (Auto) 100 (0-100) /uL Sodium 139 (137-145) mmol/L Potassium 3.7 (3.4-5.1) mmol/L Chloride 102 (98-107) mmol/L Carbon Dioxide 27 (22-32) mmol/L BUN 27 H (7-17) mg/dL Creatinine 0.90 (0.52-1.04) mg/dL Estimated GFR > 60.0 (>60) mL/min BUN/Creatinine Ratio 30.0 H (6-22) Glucose 111 H (80-110) mg/dL Calcium 9.8 (8.4-10.2) mg/dL Magnesium 1.6 (1.6-2.3) mg/dL Total Creatine Kinase 32 (30-135) U/L CK-MB (CK-2) TNP CK-MB (CK-2) Rel Index TNP Troponin I 0.056 H (0.01-0.034) ng/mL B-Natriuretic Peptide (<100) Prolactin 19.4 H (3.0-18.6) ng/mL Urine RBC (0-5/HPF) Urine WBC (0-5/HPF) Ur Squamous Epith Cells Urine Bacteria (None) Ur Culture Indicated? 03/28/18 03/28/18 Range/Units 14:09 Unknown WBC (4.5-11.0) X10^3/uL RBC (4.0-5.2) X10^6/uL Hgb (12.0-16.0) g/dL Hct (36-46) % MCV (80-100) fL MCH (26-34) PG MCHC (30-36) % RDW (11.6-14.8) % Plt Count (150-400) X10^3/uL Neut % (Auto) (50-75) % Lymph % (Auto) (25-40) % Posey % (Auto) (3-14) % Eos % (Auto) (2-4) % Baso % (Auto) (0-2) % Neut # (Auto) (4117-0194) /uL Lymph # (Auto) (9618-7066) /uL Posey # (Auto) (0-900) /uL Eos # (Auto) (0-450) /uL Baso # (Auto) (0-100) /uL Sodium (137-145) mmol/L Potassium (3.4-5.1) mmol/L Chloride (98-107) mmol/L Carbon Dioxide (22-32) mmol/L BUN (7-17) mg/dL Creatinine (0.52-1.04) mg/dL Estimated GFR (>60) mL/min BUN/Creatinine Ratio (6-22) Glucose (80-110) mg/dL Calcium (8.4-10.2) mg/dL Magnesium (1.6-2.3) mg/dL Total Creatine Kinase (30-135) U/L CK-MB (CK-2) CK-MB (CK-2) Rel Index Troponin I (0.01-0.034) ng/mL B-Natriuretic Peptide < 100 (<100) Prolactin (3.0-18.6) ng/mL Urine RBC None seen (0-5/HPF) Urine WBC 5-10/hpf H (0-5/HPF) Ur Squamous Epith Cells 5-10 /hpf H Urine Bacteria Moderate (10-30) H (None) Ur Culture Indicated? Cult not indicated Urine Dip Bedside Urine Glucose Negative Bedside Urine Bilirubin - Negative Bedside Urine Ketone - Negative Urine Specific Harvey 1.015 Bedside Urine Occult Blood - Negative Bedside Urine pH 6.0 Bedside Urine Protein - Negative Bedside Urine Urobilinogen - Negative Bedside Urine Nitrite - Negative Bedside Urine Leukocytes ++ 125 Esterase Discharge Plan Departure Patient Disposition: Home Clinical Impression: Tremor Discharge Date/Time: 03/28/18 16:23 Interventions: ED Discharge Assessment Last Done: 03/28/18 15:54 Instructions: DI for Benign Essential Tremor Activity Restrictions/Additional Instructions: *You have been diagnosed with [ worsening generalized tremor] *What to do: *Take medications as directed: Prescription has been electronically transmitted to [facility] at your request *Follow up with your primary care provider in 2-3 days, call for an appointment. Let them know you were seen in the Emergency Department and that we ask that you be seen in follow up *Return to ER if you should have any new, worsening or concerning symptoms Prescriptions: New primidone 50 mg tablet 50 mg PO BEDTIME Qty: 30 RF: 0 nitrofurantoin monohyd/m-cryst [Macrobid] 100 mg capsule 100 mg PO BID Qty: 14 RF: 0 No Action bumetanide 1 MG tablet 2 mg PO BID Qty: 0 RF: 0 benzonatate [Tessalon Perles] 100 MG capsule 100 mg PO BID Qty: 0 RF: 0 metoprolol tartrate 100 MG tablet 100 mg PO BID Qty: 0 RF: 0 ondansetron 4 MG tablet,disintegrating 4 mg PO PRN PRN (Reason: Nausea) Qty: 0 RF: 0 atorvastatin 80 mg tablet 80 mg PO DAILY RF: 0 pregabalin [Lyrica] 200 mg capsule 200 mg PO TID RF: 0 losartan 25 mg tablet 25 mg PO BEDTIME RF: 0 sildenafil (antihypertensive) 20 mg tablet 20 mg PO TID RF: 0 oxycodone-acetaminophen 7.5-325 mg tablet 1 tab PO Q6H PRN (Reason: PAIN) RF: 0 clopidogrel [Plavix] 75 mg tablet 75 mg PO DAILY RF: 0 chlorzoxazone 500 mg tablet 500 mg PO BID RF: 0 aspirin 81 mg Tablet,Delayed Release (Dr/Ec) 81 mg PO QNOON RF: 0 acetaminophen 500 mg Tablet 1,000 mg PO TID RF: 0 magnesium 250 mg Tablet 250 mg PO QNOON RF: 0 diphenhydramine-acetaminophen [Tylenol PM Extra Strength] 25-500 mg Tablet 2 tab PO BEDTIME RF: 0 omega-3 fatty acids-fish oil [Fish Oil] 300-1,000 mg Capsule 300 mg PO BEDTIME RF: 0 budesonide-formoterol [Symbicort] 160-4.5 mcg/actuation Hfa Aerosol Inhaler 2 puff INHALATION BID PRN (Reason: Shortness Of Breath) RF: 0 L.acidophilus-Bifido.longum [Probiotic Pearls] 15 mg (1 billion cell) Capsule, Delayed Release(Dr/Ec) 1 cap PO QPM RF: 0 soy isofla-blk cohosh-mag bark [Estroven] 155 mg Capsule 1 cap PO BEDTIME RF: 0 ipratropium-albuterol 3 ML solution for nebulization 3 ml INH Q4H PRN (Reason: Shortness Of Breath) RF: 0 estradiol-norethindrone acet [Mimvey] 1-0.5 mg tablet 1 tab PO BEDTIME RF: 0 tramadol 50 MG tablet 50 mg PO TID RF: 0 pantoprazole [Protonix] 40 MG tablet,delayed release (DR/EC) 40 mg PO BEDTIME RF: 0 folic acid 1 mg tablet 1 mg PO QNOON RF: 0 fexofenadine-pseudoephedrine [Keya-D 24 Hour] 180-240 mg tablet extended release 24 hr 1 tab PO DAILY RF: 0 Referrals: Pedro Lynn MD [Primary Care Provider] -
[2018-03-28 15:09] LABS: Creatine Kinase 32 U/L (30-135)
[2018-03-28 15:20] LABS: B Type Natriuretic Peptide < 100 (<100)
[2018-03-28 15:22] LABS: Troponin I 0.056 ng/mL (0.01-0.034)
[2018-03-28 15:47] VITALS: BP 161/59; PULSE 78; RESP 14; O2SAT 97
[2018-03-28 15:56] LABS: RBC Urine None Seen (0-5/HPF)
[2018-03-28 16:00] LABS: Bacteria Urine Moderate (10-30); Culture Indicated Urine Cult Not Indicated; Squamous Epithelial Cell Urine 5-10 /HPF; WBC Urine 5-10/HPF (0-5/HPF)
== END 2018-03-28 16:23 | disposition home or self-care (01) ==
PROVIDERS: Emergency Provider Emergency Medicine; PCP Family Medicine
DX: R25.1 Tremor, unspecified (principal)
CPT/HCPCS: 36415; 36591; 71045; 80048; 81003; 81015; 82550; 83735; 83880; 84146; 84484; 85025; 87086; 99284

== ENCOUNTER 2018-04-23 10:06 | Inpatient (IN) | payer MEDICARE, OTHER, SELFPAY ==
[2018-04-23] VITALS (19 sets, daily range): BP systolic 110–150; BP diastolic 40–79; PULSE 66–106; RESP 12–21; TEMP 36.4–36.8; O2SAT 94–100; BMI 36.2
--- NOTE | 2018-04-23 10:19 | ED.SOB ---
HPI - SOB/Dyspnea General Chief Complaint: Shortness of Breath/Dyspnea Stated Complaint: difficulty breathing, thinks a possible infection Time Seen by Provider: 04/23/18 10:18 Source: patient and family Mode of arrival: ambulatory Limitations: no limitations History of Present Illness 73-year-old female, nonsmoker with extensive complicated medical history presents to the emergency department with a chief complaint of difficulty breathing and productive sputum worsening over the past week. She does have access to home oxygen which is normally used sparingly at night but she has been increasing the use any even now has used it nearly around the clock for the past day or 2. She denies nausea or vomiting. She denies fever or shaking chills. She denies chest pain or shortness of breath. She is quite fatigued. She states her shortness of breath is worse with exertion but denies any change with position. MD Complaint: shortness of breath and cough Onset (ago): day(s) Context: recent illness Severity: moderate Consistency/Duration: constant Relieving factors: oxygen and rest Exacerbating factors: exertion Associated symptoms: denies other symptoms Treatment prior to arrival: oxygen Related Data Home oxygen amount: 2 liters Home Medications Medication Instructions Recorded Confirmed bumetanide 1 mg PO BID #0 03/17/16 04/23/18 benzonatate [Tessalon Perles] 100 mg PO TID #0 08/12/16 04/23/18 atorvastatin 80 mg tablet 80 mg PO DAILY 11/22/17 04/23/18 clopidogrel 75 mg tablet 75 mg PO DAILY 11/22/17 04/23/18 losartan 25 mg tablet 25 mg PO BEDTIME 11/22/17 04/23/18 pregabalin 200 mg capsule 200 mg PO TID 11/22/17 04/23/18 sildenafil (antihypertensive) 20 20 mg PO TID 11/22/17 04/23/18 mg tablet [place]-D 24 Hour 1 tab PO DAILY 03/28/18 04/23/18 L.acidophilus-Bifido.longum 1 cap PO QPM 03/28/18 04/23/18 [Probiotic Pearls] acetaminophen 1,000 mg PO TID 03/28/18 04/23/18 aspirin 81 mg PO QNOON 03/28/18 04/23/18 budesonide-formoterol [Symbicort] 2 puff INHALATION BID PRN 03/28/18 04/23/18 chlorzoxazone 500 mg PO BID 03/28/18 04/23/18 diphenhydramine-acetaminophen 2 tab PO BEDTIME 03/28/18 04/23/18 [Tylenol PM Extra Strength] estradiol-norethindrone acet 1 tab PO BEDTIME 03/28/18 04/23/18 [Mimvey] folic acid 1 mg PO QNOON 03/28/18 04/23/18 ipratropium-albuterol 3 ml INH Q4H PRN 03/28/18 04/23/18 magnesium 250 mg PO QNOON 03/28/18 04/23/18 omega-3 fatty acids-fish oil [Fish 300 mg PO BEDTIME 03/28/18 04/23/18 Oil] pantoprazole [Protonix] 40 mg PO BID 03/28/18 04/23/18 soy isofla-blk cohosh-mag bark 1 cap PO BEDTIME 03/28/18 04/23/18 [Estroven] tramadol 50 mg PO TID PRN 03/28/18 04/23/18 metoprolol succinate 100 mg PO BID 04/23/18 04/23/18 ondansetron HCl 4 mg PO TID-QID PRN 04/23/18 04/23/18 oxycodone-acetaminophen 1 tab PO BID 04/23/18 04/23/18 pramipexole [Mirapex] 0.25 mg PO TID PRN 04/23/18 04/23/18 Previous Rx's Medication Instructions Recorded primidone 50 mg tablet 50 mg PO BEDTIME #30 tab 04/19/18 Allergies Allergy/AdvReac Type Severity Reaction Status Date / Time tetanus toxoid, adsorbed Allergy Severe severe Verified 04/23/18 10:22 [TETANUS TOXOID, ADSORBED] swelling amoxicillin [From AUGMENTIN] Allergy Mild rash Verified 04/23/18 10:22 clavulanic acid Allergy Mild rash Verified 04/23/18 10:22 [From AUGMENTIN] lisinopril [LISINOPRIL] Allergy Mild cough Verified 04/23/18 10:22 pneumococcal vaccine Allergy Mild Severe arm Verified 04/23/18 10:22 [PNEUMOCOCCAL VACCINE] swelling minocycline [MINOCYCLINE] Allergy Unknown Verified 04/23/18 10:22 morphine [MORPHINE] Allergy Unknown Verified 04/23/18 10:22 sulindac [SULINDAC] Allergy Unknown Verified 04/23/18 10:22 tioconazole [TIOCONAZOLE] Allergy Unknown BURNING Verified 04/23/18 10:22 carisoprodol [CARISOPRODOL] AdvReac Mild numbness Verified 04/23/18 10:22 clotrimazole [CLOTRIMAZOLE] AdvReac Mild burning Verified 04/23/18 10:22 codeine [CODEINE] AdvReac Mild hallucinati Verified 04/23/18 10:22 ons miconazole [MICONAZOLE] AdvReac Mild intense Verified 04/23/18 10:22 burning nifedipine [NIFEDIPINE] AdvReac Mild flushing Verified 04/23/18 10:22 phenazopyridine AdvReac Mild extreme Verified 04/23/18 10:22 [PHENAZOPYRIDINE] fatigue Review of Systems Constitutional Denies chills, Denies fever(s), Denies lethargy and Denies weakness Eyes Denies change in vision, Denies eye discharge, Denies irritation and Denies loss of vision ENT Ears, Nose, Mouth, and Throat: Denies change in voice, Denies neck pain and Denies sore throat Cardiovascular Denies chest pain, Denies irregular heart rhythm, Denies lightheadedness, Denies palpitations, Reports dyspnea, Denies dyspnea on exertion and Denies orthopnea Respiratory Reports cough, Reports dyspnea, Denies dyspnea on exertion and Denies wheezing Gastrointestinal Gastrointestinal: Denies abdominal pain, Denies change in bowel habits, Denies diarrhea, Denies nausea and Denies vomiting Genitourinary Denies hematuria, Denies flank pain, Denies urinary incontinence and Denies urinary urgency Musculoskeletal Denies neck pain Integumentary/Breasts Denies pruritus, Denies erythema, Denies rash and Denies wounds Neurologic Denies confusion, Denies loss of vision and Denies weakness Psychiatric Denies anxiety, Denies confusion, Denies depression, Denies homicidal ideation and Denies suicidal ideation Endocrine Denies palpitations Hematologic/Lymphatic Denies easy bruising Allergic/Immunologic Denies wheezing [facility] Medical History Coronary artery disease (Chronic) Fibromyalgia (Chronic) Hypertension (Chronic) Leukocytosis (Chronic) Oxygen dependent (Chronic) Sarcoidosis (Chronic) Tachycardia (Chronic) Surgical History History of surgery (Resolved ~2016) Status post surgery (03/15/10) Social History marital status: Smoking Status: Never smoker alcohol intake: never substance use type: does not use Social History marital status: Smoking Status: Never smoker alcohol intake: never substance use type: does not use Exam Narrative Exam Narrative: GENERAL: 73-year-old female, ill-appearing somnolent but easily arousable, with some respiratory distress HEAD: Atraumatic. Normocephalic. No temporal or scalp tenderness. EYES: Pupils equal round and reactive. Extraocular motions intact. No scleral icterus. No injection or drainage. ENT: Nose without bleeding, purulent drainage or septal hematoma. Throat without erythema, tonsillar hypertrophy or exudate. Uvula midline. Airway patent. NECK: Trachea midline. No JVD or lymphadenopathy. Supple, nontender, no meningeal signs. CARDIOVASCULAR: Regular rate and rhythm without murmurs, gallops, or rubs. RESPIRATORY: Decreased breath sounds with expiratory wheeze, no crackles or rales GASTROINTESTINAL: Abdomen soft, non-tender, nondistended. No hepato-splenomegaly, or palpable masses. No guarding. EXTREMITIES: No clubbing, cyanosis, or edema. No joint tenderness, effusion, or edema noted. BACK: Nontender without deformity or crepitance. No flank tenderness. NEURO: AOx3. SKIN: No rash or erythema. Initial Vital Signs Initial Vital Signs: Vital Signs Temperature 97.8 F 04/23/18 10:18 Pulse Rate 70 04/23/18 10:18 Respiratory Rate 18 04/23/18 10:18 Blood Pressure 117/63 04/23/18 10:18 Pulse Oximetry 97 04/23/18 10:18 Course Orders Ordered: ED Orders 04/23/18 10:35 BNP [B Type Natriuretic Peptide] Stat Complete Blood Count AUTO DIFF Stat Comprehensive Metabolic Panel Stat Lipase Stat Partial Thromboplastin Time Stat Prothrombin Time INR Stat Troponin & CK Cardiac Panel Stat 04/23/18 12:44 CT angio chest PE protocol Stat 04/23/18 16:21 Education, smoking cessation ONGOING RT Consult Eval and Treat Now 04/24/18 05:00 Complete Blood Count AUTO DIFF Routine Comprehensive Metabolic Panel Routine Acetaminophen (Tylenol) 975 mg PO TID PRN PRN Reason: Pain, Mild (1-3) Last Admin: 04/23/18 17:47 Dose: 650 mg Albuterol/Ipratropium (Duoneb) 3 ml INH Q4H PRN PRN Reason: Shortness Of Breath Last Admin: 04/23/18 18:34 Dose: 3 ml Aspirin (Aspirin Ec) 81 mg PO QNOON [facility] Last Admin: 04/23/18 17:42 Dose: 81 mg Atorvastatin Calcium (Lipitor) 80 mg PO BEDTIME [facility] Clopidogrel Bisulfate (Plavix) 75 mg PO DAILY [facility] Enoxaparin Sodium (Lovenox) 40 mg SUBCUT DAILY [facility] Losartan Potassium (Cozaar) 25 mg PO BEDTIME [facility] Magnesium Oxide (Mag Ox) 200 mg PO QNOON [facility] Last Admin: 04/23/18 17:43 Dose: 200 mg Metoprolol Succinate (Toprol Xl) 100 mg PO BID [facility] Budesonide- Formoterol [ Symbicort] 2 Puff 2 puff INHALATION RTBID [facility] Oxycodone/Acetaminophen (Percocet 5/325) 1 tab PO BID PRN PRN Reason: pain Last Admin: 04/23/18 17:52 Dose: 1 tab Pregabalin (Lyrica) 200 mg PO TID [facility] Last Admin: 04/23/18 17:40 Dose: 200 mg Sildenafil Citrate (Revatio) 20 mg PO TID [facility] Last Admin: 04/23/18 17:42 Dose: 20 mg Temazepam (Resoril) 15 mg PO BEDTIME PRN PRN Reason: Sleep Tramadol HCl (Ultram) 50 mg PO TID PRN PRN Reason: pain Discontinued Medications Albuterol (Ventolin) 2.5 mg INH NOW ONE Stop: 04/23/18 12:00 Last Admin: 04/23/18 12:00 Dose: 2.5 mg Albuterol/Ipratropium (Duoneb) 3 ml INH NOW ONE Stop: 04/23/18 14:16 Last Admin: 04/23/18 14:50 Dose: 3 ml Methylprednisolone (Solu-Medrol 125 Mg Vial) 60 mg IV Q6HR [facility] Reevaluation(s) Reevaluation #1: Patient has minimal improvement with bronchodilators. Reevaluation #2: CT angiogram performed given lack of other findings and the possibility of hidden pneumonia, vascular abnormality or pulmonary embolism Consultations Consultation #1: Dr. Lynn happy to accept on his service, he had seen her about a week ago and states she looked relatively okay, and today's presentation is clearly a moves in the wrong direction. She will be brought into the hospital for further evaluation and characterization of her illness Vital Signs - 8 hr 04/23/18 11:30 04/23/18 12:00 04/23/18 12:06 Temperature Pulse Rate 67 68 72 Respiratory Rate 14 13 12 Blood Pressure Blood Pressure [Left Arm] 127/40 L 114/41 L Pulse Oximetry 94 97 95 04/23/18 13:08 04/23/18 13:30 04/23/18 14:00 Temperature Pulse Rate 73 77 76 Respiratory Rate 15 14 13 Blood Pressure Blood Pressure [Left Arm] 137/40 L 123/54 L 139/58 L Pulse Oximetry 99 100 96 04/23/18 14:30 04/23/18 14:55 04/23/18 15:00 Temperature Pulse Rate 82 80 85 Respiratory Rate 15 18 18 Blood Pressure Blood Pressure [Left Arm] 137/49 L 110/79 Pulse Oximetry 100 96 99 04/23/18 16:00 04/23/18 16:15 04/23/18 18:38 Temperature 97.6 F Pulse Rate 87 106 H 86 Respiratory Rate 20 21 Blood Pressure 139/62 Blood Pressure [Left Arm] 110/79 Pulse Oximetry 100 94 98 MDM - SOB/Dyspnea Lab Data Result diagrams: 04/23/18 10:35 04/23/18 10:35 Lab Results 04/23/18 04/23/18 04/23/18 Range/Units 10:35 10:35 10:35 WBC 4.4 L (4.5-11.0) X10^3/uL RBC 4.03 (4.0-5.2) X10^6/uL Hgb 12.6 (12.0-16.0) g/dL Hct 39.7 (36-46) % MCV 98.5 (80-100) fL MCH 31.2 (26-34) PG MCHC 31.7 (30-36) % RDW 16.5 H (11.6-14.8) % Plt Count 236 (150-400) X10^3/uL Neut % (Auto) 60.3 (50-75) % Lymph % (Auto) 24.1 L (25-40) % [place] % (Auto) 12.2 (3-14) % Eos % (Auto) 2.6 (2-4) % Baso % (Auto) 0.8 (0-2) % Neut # (Auto) 2600 (6143-7600) /uL Lymph # (Auto) 1100 (4722-1385) /uL [place]ley # (Auto) 500 (0-900) /uL Eos # (Auto) 100 (0-450) /uL Baso # (Auto) 0 (0-100) /uL PT 11.3 (10.1-12.7) SECONDS INR 1.0 (0.9-1.3) APTT 33 (26.4-36.2) SECONDS Sodium 138 (137-145) mmol/L Potassium 3.6 (3.4-5.1) mmol/L Chloride 94 L (98-107) mmol/L Carbon Dioxide 31 (22-32) mmol/L BUN 21 H (7-17) mg/dL Creatinine 1.10 H (0.52-1.04) mg/dL Estimated GFR 48.8 L (>60) mL/min BUN/Creatinine Ratio 19.1 (6-22) Glucose 111 H (80-110) mg/dL Calcium 9.6 (8.4-10.2) mg/dL Total Bilirubin 0.5 (0.2-1.3) mg/dL AST 78 H (14-36) IU/L ALT 40 (9-52) IU/L Alkaline Phosphatase 89 (38-126) U/L Total Creatine Kinase 39 (30-135) U/L CK-MB (CK-2) TNP CK-MB (CK-2) Rel Index TNP Troponin I < 0.012 (0.01-0.034) ng/mL B-Natriuretic Peptide < 100 (<100) Total Protein 7.5 (6.3-8.2) g/dL Albumin 4.4 (3.5-5.0) g/dL Globulin 3.1 (1.7-4.1) g/dL Albumin/Globulin Ratio 1.4 (1.0-2.8) Lipase 223 (23-300) U/L Urine Dip Bedside Urine Glucose Negative Bedside Urine Bilirubin - Negative Bedside Urine Ketone - Negative Urine Specific [place] 1.015 Bedside Urine Occult Blood - Negative Bedside Urine pH 5.5 Bedside Urine Protein +/- 15 Bedside Urine Urobilinogen - Negative Bedside Urine Nitrite - Negative Bedside Urine Leukocytes - Negative Esterase Discharge Plan Departure Patient Disposition: Admitted as Observation Clinical Impression: Acute dyspnea, Hypoxia Discharge Date/Time: 04/23/18 16:12 Interventions: ED Discharge Assessment Last Done: 04/23/18 16:09 Admit Date/Time: 04/23/18 14:52 Admit Provider: Pedro Lynn
--- NOTE | 2018-04-23 10:24 | DI.RAD.S_ITS ---
PROCEDURE: XR CHEST 1V INDICATIONS: chest pain TECHNIQUE: One view of the chest was acquired. COMPARISON: [facility], , CHEST 2 VIEW, 09/10/2015, 17:12. [facility], , CHEST 1 VIEW, 08/12/2016, 17:10. [facility], , XR CHEST 1V, 03/28/2018, 14:57. FINDINGS: Surgical changes and devices: None. Lungs and pleura: Lungs are clear. Probable prominent anterior right first rib costochondral calcification No pleural effusions or pneumothorax. Elevation of the right hemidiaphragm. Mediastinum: Mediastinal contours appear normal. Heart size is normal. Bones and chest wall: Lateral curvature of the spine. IMPRESSION: No acute disease. Nodular opacity projects in the right upper lobe presumably prominent right anterior first rib costochondral calcification although this could be confirmed with followup 3 month PA and lateral chest radiographs to exclude pulmonary nodule. Dictated by: Zachary Mitchell M.D. on 04/23/2018 at 10:49 Approved by: Zachary Mitchell M.D. on 04/23/2018 at 10:52
[2018-04-23 10:42] LABS: Add Manual Diff / Slide Review NO; Basophils Absolute Auto 0 /uL (0-100); Basophils Percent Auto 0.8 % (0-2); Eosinophils Absolute Auto 100 /uL (0-450); Eosinophils Percent Auto 2.6 % (2-4); Hematocrit 39.7 % (36-46); Hemoglobin 12.6 g/dL (12.0-16.0); Lymphocytes Absolute Auto 1100 /uL (1100-4500); Lymphocytes Percent Auto 24.1 % (25-40); Mean Corpuscular HGB Conc 31.7 % (30-36); Mean Corpuscular Hemoglobin 31.2 PG (26-34); Mean Corpuscular Volume 98.5 fL (80-100); Monocytes Absolute Auto 500 /uL (0-900); Monocytes Percent Auto 12.2 % (3-14); Neutrophils Absolute Auto 2600 /uL (1500-7000); Neutrophils Percent Auto 60.3 % (50-75); Platelet Count 236 X10^3/uL (150-400); Red Blood Cell Count 4.03 X10^6/uL (4.0-5.2); Red Cell Distribution Width 16.5 % (11.6-14.8); White Blood Cell Count 4.4 X10^3/uL (4.5-11.0)
[2018-04-23 10:49] LABS: Prothrombin Time 11.3 SECONDS (10.1-12.7)
[2018-04-23 10:52] LABS: PTT Partial Thromboplastin Tim 33 SECONDS (26.4-36.2)
[2018-04-23 10:54] LABS: Alanine Aminotransferase 40 IU/L (9-52); Albumin 4.4 g/dL (3.5-5.0); Albumin Globulin Ratio 1.4 (1.0-2.8); Alkaline Phosphatase 89 U/L (38-126); Aspartate Aminotransferase 78 IU/L (14-36); BUN Creatinine Ratio 19.1 (6-22); Bilirubin Total 0.5 mg/dL (0.2-1.3); Blood Urea Nitrogen 21 mg/dL (7-17); Calcium 9.6 mg/dL (8.4-10.2); Carbon Dioxide 31 mmol/L (22-32); Chloride 94 mmol/L (98-107); Creatine Kinase 39 U/L (30-135); Estimated Glomerular Filt Rate 48.8 mL/min (>60); Globulin 3.1 g/dL (1.7-4.1); Glucose 111 mg/dL (80-110); HEMOLYSIS < 15 (0-50); Lipase 223 U/L (23-300); Potassium 3.6 mmol/L (3.4-5.1); Sodium 138 mmol/L (137-145); Total Protein 7.5 g/dL (6.3-8.2)
[2018-04-23 11:06] LABS: Troponin I < 0.012 ng/mL (0.01-0.034)
[2018-04-23] MEDS: ALBUTEROL 2.5 MG/3 ML NEB (ADULT) INH (12:00)
--- NOTE | 2018-04-23 12:35 | PC.NURSE ---
Patient placed on 3L O2 via nasal cannula at this time upon her request. She states she uses oxygen at home at night and sometimes during the day. I explained that her O2 saturation levels were excellent at 99% on Room air. Oxygen placed for her comfort.
--- NOTE | 2018-04-23 12:44 | DI.CT.S_ITS ---
PROCEDURE: CT ANGIO CHEST PE PROTOCOL INDICATIONS: shortness of breath, cough TECHNIQUE: After the administration of intravenous contrast, 2 mm thick sections acquired from the pulmonary apices to the posterior costophrenic angles. 3-dimensional maximum intensity projection (MIP) coronal and sagittal reformats were then acquired through the thorax. For radiation dose reduction, the following was used: automated exposure control, adjustment of mA and/or kV according to patient size. COMPARISON: [facility], CT, PE STUDY (CTA CHEST), 12/27/2013, 12:47. [facility], CT, PE STUDY (CTA CHEST), 04/29/2016, 14:02. [facility], CR, XR CHEST 1V, 04/23/2018, 10:32. FINDINGS: Image quality: Excellent. Pulmonary arteries: Pulmonary arteries are normal in size, and demonstrate no intraluminal filling defects to suggest central pulmonary embolism. Lungs and pleura: Previous identified nodules are unchanged. No pleural effusions or pneumothorax. Central and peripheral airways are patent. Mediastinum: Heart size is normal, without pericardial effusion. As identified on prior exams, there are areas of perihilar and peribronchial adjacent soft tissue thickening. There has been mild interval increased prominence compared to 2017. Thoracic aorta is normal in caliber and enhancement. Esophagus is normal in caliber, with mild hiatal hernia. Bones and chest wall: No suspicious bony lesions. Ribs and thoracic spine appear intact throughout. Thyroid gland is mildly prominent, unchanged. No axillary or supraclavicular adenopathy. Abdomen: Visualized upper abdominal solid organs appear normal in the early arterial phase of enhancement. IMPRESSION: 1. No pulmonary embolism. No effusions or consolidations. 2. Stable appearance of previous identified pulmonary nodules. 3. Perihilar and peribronchial adjacent soft tissue thickening which has been present over multiple prior exams. As previously noted, this could be represent prior granulomatous disease or perhaps autoimmune etiology. Given relative stability with minimal appearance of progression over multiple prior exams, neoplasm is felt to be less likely, although unable to be completely excluded. Recommend continued interval followup as clinically appropriate. Dictated by: Qi Bolanos M.D. on 04/23/2018 at 13:14 Approved by: Qi Bolanos M.D. on 04/23/2018 at 13:22
[2018-04-23] MEDS: ALBUTEROL/IPRATROPIUM 3 ML AMPUL INH ×2 (14:50→18:34)
--- NOTE | 2018-04-23 15:05 | P.HP_ITS ---
History of Present Illness Chief complaint: difficulty breathing, thinks a possible infection Patient History Medical History Coronary artery disease (Chronic) Fibromyalgia (Chronic) Hypertension (Chronic) Leukocytosis (Chronic) Oxygen dependent (Chronic) Sarcoidosis (Chronic) Tachycardia (Chronic) Surgical History History of surgery (Resolved ~2016) Status post surgery (03/15/10) Social History marital status: Smoking Status: Never smoker alcohol intake: never substance use type: does not use Family & Social History Safety & Behavioral: Feels Safe in Current Yes Environment Been Physically Hurt or No Threatened By a Person Tobacco & Substance use: Smoking Status Never smoker alcohol intake never alcohol intake frequency 0-2 drinks per day Substance Use Type does not use Meds Home Medications Medication Instructions Recorded Confirmed Type bumetanide 1 mg PO BID #0 03/17/16 04/23/18 History benzonatate [Tessalon Perles] 100 mg PO BID #0 08/12/16 04/23/18 History atorvastatin 80 mg tablet 80 mg PO DAILY 11/22/17 04/23/18 History clopidogrel 75 mg tablet 75 mg PO DAILY 11/22/17 04/23/18 History losartan 25 mg tablet 25 mg PO BEDTIME 11/22/17 04/23/18 History pregabalin 200 mg capsule 200 mg PO TID 11/22/17 04/23/18 History sildenafil (antihypertensive) 20 20 mg PO TID 11/22/17 04/23/18 History mg tablet Key[place]-D 24 Hour 1 tab PO DAILY 03/28/18 04/23/18 History L.acidophilus-Bifido.longum 1 cap PO QPM 03/28/18 04/23/18 History [Probiotic Pearls] acetaminophen 1,000 mg PO TID 03/28/18 04/23/18 History aspirin 81 mg PO QNOON 03/28/18 04/23/18 History budesonide-formoterol [Symbicort] 2 puff INHALATION BID PRN 03/28/18 04/23/18 History chlorzoxazone 500 mg PO BID 03/28/18 04/23/18 History diphenhydramine-acetaminophen 2 tab PO BEDTIME 03/28/18 04/23/18 History [Tylenol PM Extra Strength] estradiol-norethindrone acet 1 tab PO BEDTIME 03/28/18 04/23/18 History [Mimvey] folic acid 1 mg PO QNOON 03/28/18 04/23/18 History ipratropium-albuterol 3 ml INH Q4H PRN 03/28/18 04/23/18 History magnesium 250 mg PO QNOON 03/28/18 04/23/18 History omega-3 fatty acids-fish oil [Fish 300 mg PO BEDTIME 03/28/18 04/23/18 History Oil] pantoprazole [Protonix] 40 mg PO BID 03/28/18 04/23/18 History soy isofla-blk cohosh-mag bark 1 cap PO BEDTIME 03/28/18 04/23/18 History [Estroven] tramadol 50 mg PO TID 03/28/18 04/23/18 History primidone 50 mg tablet 50 mg PO BEDTIME #30 tab 04/19/18 04/23/18 Rx metoprolol succinate 100 mg PO BID 04/23/18 04/23/18 History oxycodone-acetaminophen 1 tab PO BID 04/23/18 04/23/18 History Allergies Allergy/AdvReac Type Severity Reaction Status Date / Time tetanus toxoid, adsorbed Allergy Severe severe Verified 04/23/18 10:22 [TETANUS TOXOID, ADSORBED] swelling amoxicillin [From AUGMENTIN] Allergy Mild rash Verified 04/23/18 10:22 clavulanic acid Allergy Mild rash Verified 04/23/18 10:22 [From AUGMENTIN] lisinopril [LISINOPRIL] Allergy Mild cough Verified 04/23/18 10:22 pneumococcal vaccine Allergy Mild Severe arm Verified 04/23/18 10:22 [PNEUMOCOCCAL VACCINE] swelling minocycline [MINOCYCLINE] Allergy Unknown Verified 04/23/18 10:22 morphine [MORPHINE] Allergy Unknown Verified 04/23/18 10:22 sulindac [SULINDAC] Allergy Unknown Verified 04/23/18 10:22 tioconazole [TIOCONAZOLE] Allergy Unknown BURNING Verified 04/23/18 10:22 carisoprodol [CARISOPRODOL] AdvReac Mild numbness Verified 04/23/18 10:22 clotrimazole [CLOTRIMAZOLE] AdvReac Mild burning Verified 04/23/18 10:22 codeine [CODEINE] AdvReac Mild hallucinati Verified 04/23/18 10:22 ons miconazole [MICONAZOLE] AdvReac Mild intense Verified 04/23/18 10:22 burning nifedipine [NIFEDIPINE] AdvReac Mild flushing Verified 04/23/18 10:22 phenazopyridine AdvReac Mild extreme Verified 04/23/18 10:22 [PHENAZOPYRIDINE] fatigue Exam Vital Signs (past 8 hours): - 04/23/18 10:18 04/23/18 10:30 04/23/18 11:00 Temperature 97.8 F Pulse Rate 70 69 66 Respiratory Rate 18 14 12 Blood Pressure 117/63 Blood Pressure [Left Arm] 138/57 L 125/49 L Pulse Oximetry 97 95 98 04/23/18 11:30 04/23/18 12:00 04/23/18 12:06 Temperature Pulse Rate 67 68 72 Respiratory Rate 14 13 12 Blood Pressure Blood Pressure [Left Arm] 127/40 L 114/41 L Pulse Oximetry 94 97 95 04/23/18 13:08 04/23/18 13:30 04/23/18 14:00 Temperature Pulse Rate 73 77 76 Respiratory Rate 15 14 13 Blood Pressure Blood Pressure [Left Arm] 137/40 L 123/54 L 139/58 L Pulse Oximetry 99 100 96 04/23/18 14:30 04/23/18 14:55 Temperature Pulse Rate 82 80 Respiratory Rate 15 18 Blood Pressure Blood Pressure [Left Arm] 137/49 L Pulse Oximetry 100 96 Oxygen Delivery Method Nasal Cannula Oxygen Flow Rate 2 Objective ECG Impression: Normal sinus rhythm rate [address] scan - chest: Radiologist's impression: 1. No pulmonary embolism. No effusions or consolidations. 2. Stable appearance of previous identified pulmonary nodules. 3. Perihilar and peribronchial adjacent soft tissue thickening which has been present over multiple prior exams. As previously noted, this could be represent prior granulomatous disease or perhaps autoimmune etiology. Given relative stability with minimal appearance of progression over multiple prior exams, neoplasm is felt to be less likely, although unable to be completely excluded. Recommend continued interval followup as clinically appropriate. Labs Result Diagrams: 04/23/18 10:35 04/23/18 10:35 Labs: Laboratory Results - last 24 hr 04/23/18 04/23/18 04/23/18 10:35 10:35 10:35 WBC 4.4 L RBC 4.03 Hgb 12.6 Hct 39.7 MCV 98.5 MCH 31.2 MCHC 31.7 RDW 16.5 H Plt Count 236 Neut % (Auto) 60.3 Lymph % (Auto) 24.1 L [place] % (Auto) 12.2 Eos % (Auto) 2.6 Baso % (Auto) 0.8 Neut # (Auto) 2600 Lymph # (Auto) 1100 [place] # (Auto) 500 Eos # (Auto) 100 Baso # (Auto) 0 PT 11.3 INR 1.0 APTT 33 Sodium 138 Potassium 3.6 Chloride 94 L Carbon Dioxide 31 BUN 21 H Creatinine 1.10 H Estimated GFR 48.8 L BUN/Creatinine Ratio 19.1 Glucose 111 H Calcium 9.6 Total Bilirubin 0.5 AST 78 H ALT 40 Alkaline Phosphatase 89 Total Creatine Kinase 39 CK-MB (CK-2) TNP CK-MB (CK-2) Rel Index TNP Troponin I < 0.012 Total Protein 7.5 Albumin 4.4 Globulin 3.1 Albumin/Globulin Ratio 1.4 Lipase 223 Assessment & Plan Assessment Narrative: Pulmonary sarcoidosis. Plan Narrative: Pulmonary sarcoidosis. Which patient with increasing respiratory distress. CT chest and chest x-ray fairly unremarkable other than previous apical scarring. Patient will be given inhaled steroids nebulizers as well as started on IV Solu-Medrol 60 mg 3 times a day to see if this will help with her respiratory status. Her lung sounds are more bronchial than anything else. Her recently got over a infection. Will go ahead and send for a sputum culture and a respiratory PCR panel. Will monitor her oxygen status provide oxygen as needed. And see if she has improvement with this. Coronary artery disease patient has known history of coronary artery disease with stents placed. Will continue with her aspirin Plavix beta-mesfin and angiotensin receptor mesfin as well as her statin. No active coronary artery disease symptoms chest x-ray is normal. Initially some of her breathing issues were thought to be cardiac related. She has a normal BNP in the emergency room and her previous normal echocardiogram. Although she has some component of diastolic dysfunction in the past has responded to diuretics help improve her breathing. Will hold off on diuresis at this point see if she responds to respiratory status. Essential hypertension. Will monitor closely blood pressure place her back on her antihypertensive medication. He can adjust as needed. Hyperlipidemia. Will go ahead and continue with her current statin medication. Fibromyalgia chronic pain. We will continue with Tylenol Ultram an intermittent pain medication. Hyperlipidemia. Patient will be placed back on her statin. Disposition plan. Patient is quite symptomatic and hypoxic. She is not able to breathe get out of better function at home. She will need further workup and evaluation of her breathing status while she is here in the hospital. And will meet inpatient criteria.
--- NOTE | 2018-04-23 15:07 | ED_ITS ---
HPI - SOB/Dyspnea General Chief Complaint: Shortness of Breath/Dyspnea Stated Complaint: difficulty breathing, thinks a possible infection Time Seen by Provider: 04/23/18 10:18 Source: patient and family Mode of arrival: ambulatory Limitations: no limitations History of Present Illness 73-year-old female, nonsmoker with extensive complicated medical history presents to the emergency department with a chief complaint of difficulty breathing and productive sputum worsening over the past week. She does have access to home oxygen which is normally used sparingly at night but she has been increasing the use any even now has used it nearly around the clock for the past day or 2. She denies nausea or vomiting. She denies fever or shaking chills. She denies chest pain or shortness of breath. She is quite fatigued. She states her shortness of breath is worse with exertion but denies any change with position. MD Complaint: shortness of breath and cough Onset (ago): day(s) Context: recent illness Severity: moderate Consistency/Duration: constant Relieving factors: oxygen and rest Exacerbating factors: exertion Associated symptoms: denies other symptoms Treatment prior to arrival: oxygen Related Data Home oxygen amount: 2 liters Home Medications Medication Instructions Recorded Confirmed bumetanide 1 mg PO BID #0 03/17/16 04/23/18 benzonatate [Tessalon Perles] 100 mg PO TID #0 08/12/16 04/23/18 atorvastatin 80 mg tablet 80 mg PO DAILY 11/22/17 04/23/18 clopidogrel 75 mg tablet 75 mg PO DAILY 11/22/17 04/23/18 losartan 25 mg tablet 25 mg PO BEDTIME 11/22/17 04/23/18 pregabalin 200 mg capsule 200 mg PO TID 11/22/17 04/23/18 sildenafil (antihypertensive) 20 20 mg PO TID 11/22/17 04/23/18 mg tablet Keya-D 24 Hour 1 tab PO DAILY 03/28/18 04/23/18 L.acidophilus-Bifido.longum 1 cap PO QPM 03/28/18 04/23/18 [Probiotic Pearls] acetaminophen 1,000 mg PO TID 03/28/18 04/23/18 aspirin 81 mg PO QNOON 03/28/18 04/23/18 budesonide-formoterol [Symbicort] 2 puff INHALATION BID PRN 03/28/18 04/23/18 chlorzoxazone 500 mg PO BID 03/28/18 04/23/18 diphenhydramine-acetaminophen 2 tab PO BEDTIME 03/28/18 04/23/18 [Tylenol PM Extra Strength] estradiol-norethindrone acet 1 tab PO BEDTIME 03/28/18 04/23/18 [Mimvey] folic acid 1 mg PO QNOON 03/28/18 04/23/18 ipratropium-albuterol 3 ml INH Q4H PRN 03/28/18 04/23/18 magnesium 250 mg PO QNOON 03/28/18 04/23/18 omega-3 fatty acids-fish oil [Fish 300 mg PO BEDTIME 03/28/18 04/23/18 Oil] pantoprazole [Protonix] 40 mg PO BID 03/28/18 04/23/18 soy isofla-blk cohosh-mag bark 1 cap PO BEDTIME 03/28/18 04/23/18 [Estroven] tramadol 50 mg PO TID PRN 03/28/18 04/23/18 metoprolol succinate 100 mg PO BID 04/23/18 04/23/18 ondansetron HCl 4 mg PO TID-QID PRN 04/23/18 04/23/18 oxycodone-acetaminophen 1 tab PO BID 04/23/18 04/23/18 pramipexole [Mirapex] 0.25 mg PO TID PRN 04/23/18 04/23/18 Previous Rx's Medication Instructions Recorded primidone 50 mg tablet 50 mg PO BEDTIME #30 tab 04/19/18 Allergies Allergy/AdvReac Type Severity Reaction Status Date / Time tetanus toxoid, adsorbed Allergy Severe severe Verified 04/23/18 10:22 [TETANUS TOXOID, ADSORBED] swelling amoxicillin [From AUGMENTIN] Allergy Mild rash Verified 04/23/18 10:22 clavulanic acid Allergy Mild rash Verified 04/23/18 10:22 [From AUGMENTIN] lisinopril [LISINOPRIL] Allergy Mild cough Verified 04/23/18 10:22 pneumococcal vaccine Allergy Mild Severe arm Verified 04/23/18 10:22 [PNEUMOCOCCAL VACCINE] swelling minocycline [MINOCYCLINE] Allergy Unknown Verified 04/23/18 10:22 morphine [MORPHINE] Allergy Unknown Verified 04/23/18 10:22 sulindac [SULINDAC] Allergy Unknown Verified 04/23/18 10:22 tioconazole [TIOCONAZOLE] Allergy Unknown BURNING Verified 04/23/18 10:22 carisoprodol [CARISOPRODOL] AdvReac Mild numbness Verified 04/23/18 10:22 clotrimazole [CLOTRIMAZOLE] AdvReac Mild burning Verified 04/23/18 10:22 codeine [CODEINE] AdvReac Mild hallucinati Verified 04/23/18 10:22 ons miconazole [MICONAZOLE] AdvReac Mild intense Verified 04/23/18 10:22 burning nifedipine [NIFEDIPINE] AdvReac Mild flushing Verified 04/23/18 10:22 phenazopyridine AdvReac Mild extreme Verified 04/23/18 10:22 [PHENAZOPYRIDINE] fatigue Review of Systems Constitutional Denies chills, Denies fever(s), Denies lethargy and Denies weakness Eyes Denies change in vision, Denies eye discharge, Denies irritation and Denies loss of vision ENT Ears, Nose, Mouth, and Throat: Denies change in voice, Denies neck pain and Denies sore throat Cardiovascular Denies chest pain, Denies irregular heart rhythm, Denies lightheadedness, Denies palpitations, Reports dyspnea, Denies dyspnea on exertion and Denies orthopnea Respiratory Reports cough, Reports dyspnea, Denies dyspnea on exertion and Denies wheezing Gastrointestinal Gastrointestinal: Denies abdominal pain, Denies change in bowel habits, Denies diarrhea, Denies nausea and Denies vomiting Genitourinary Denies hematuria, Denies flank pain, Denies urinary incontinence and Denies urinary urgency Musculoskeletal Denies neck pain Integumentary/Breasts Denies pruritus, Denies erythema, Denies rash and Denies wounds Neurologic Denies confusion, Denies loss of vision and Denies weakness Psychiatric Denies anxiety, Denies confusion, Denies depression, Denies homicidal ideation and Denies suicidal ideation Endocrine Denies palpitations Hematologic/Lymphatic Denies easy bruising Allergic/Immunologic Denies wheezing [facility] Medical History Coronary artery disease (Chronic) Fibromyalgia (Chronic) Hypertension (Chronic) Leukocytosis (Chronic) Oxygen dependent (Chronic) Sarcoidosis (Chronic) Tachycardia (Chronic) Surgical History History of surgery (Resolved ~2016) Status post surgery (03/15/10) Social History marital status: Smoking Status: Never smoker alcohol intake: never substance use type: does not use Social History marital status: Smoking Status: Never smoker alcohol intake: never substance use type: does not use Exam Narrative Exam Narrative: GENERAL: 73-year-old female, ill-appearing somnolent but easily arousable, with some respiratory distress HEAD: Atraumatic. Normocephalic. No temporal or scalp tenderness. EYES: Pupils equal round and reactive. Extraocular motions intact. No scleral icterus. No injection or drainage. ENT: Nose without bleeding, purulent drainage or septal hematoma. Throat without erythema, tonsillar hypertrophy or exudate. Uvula midline. Airway patent. NECK: Trachea midline. No JVD or lymphadenopathy. Supple, nontender, no meningeal signs. CARDIOVASCULAR: Regular rate and rhythm without murmurs, gallops, or rubs. RESPIRATORY: Decreased breath sounds with expiratory wheeze, no crackles or rales GASTROINTESTINAL: Abdomen soft, non-tender, nondistended. No hepato- splenomegaly, or palpable masses. No guarding. EXTREMITIES: No clubbing, cyanosis, or edema. No joint tenderness, effusion, or edema noted. BACK: Nontender without deformity or crepitance. No flank tenderness. NEURO: AOx3. SKIN: No rash or erythema. Initial Vital Signs Initial Vital Signs: Vital Signs Temperature 97.8 F 04/23/18 10:18 Pulse Rate 70 04/23/18 10:18 Respiratory Rate 18 04/23/18 10:18 Blood Pressure 117/63 04/23/18 10:18 Pulse Oximetry 97 04/23/18 10:18 Course Orders Ordered: ED Orders 04/23/18 10:35 BNP [B Type Natriuretic Peptide] Stat Complete Blood Count AUTO DIFF Stat Comprehensive Metabolic Panel Stat Lipase Stat Partial Thromboplastin Time Stat Prothrombin Time INR Stat Troponin & CK Cardiac Panel Stat 04/23/18 12:44 CT angio chest PE protocol Stat 04/23/18 16:21 Education, smoking cessation ONGOING RT Consult Eval and Treat Now 04/24/18 05:00 Complete Blood Count AUTO DIFF Routine Comprehensive Metabolic Panel Routine Acetaminophen (Tylenol) 975 mg PO TID PRN PRN Reason: Pain, Mild (1-3) Last Admin: 04/23/18 17:47 Dose: 650 mg Albuterol/Ipratropium (Duoneb) 3 ml INH Q4H PRN PRN Reason: Shortness Of Breath Last Admin: 04/23/18 18:34 Dose: 3 ml Aspirin (Aspirin Ec) 81 mg PO QNOON [facility] Last Admin: 04/23/18 17:42 Dose: 81 mg Atorvastatin Calcium (Lipitor) 80 mg PO BEDTIME [facility] Clopidogrel Bisulfate (Plavix) 75 mg PO DAILY [facility] Enoxaparin Sodium (Lovenox) 40 mg SUBCUT DAILY [facility] Losartan Potassium (Cozaar) 25 mg PO BEDTIME [facility] Magnesium Oxide (Mag Ox) 200 mg PO QNOON [facility] Last Admin: 04/23/18 17:43 Dose: 200 mg Metoprolol Succinate (Toprol Xl) 100 mg PO BID [facility] Budesonide- Formoterol [ Symbicort] 2 Puff 2 puff INHALATION RTBID [facility] Oxycodone/Acetaminophen (Percocet 5/325) 1 tab PO BID PRN PRN Reason: pain Last Admin: 04/23/18 17:52 Dose: 1 tab Pregabalin (Lyrica) 200 mg PO TID [facility] Last Admin: 04/23/18 17:40 Dose: 200 mg Sildenafil Citrate (Revatio) 20 mg PO TID [facility] Last Admin: 04/23/18 17:42 Dose: 20 mg Temazepam (Resoril) 15 mg PO BEDTIME PRN PRN Reason: Sleep Tramadol HCl (Ultram) 50 mg PO TID PRN PRN Reason: pain Discontinued Medications Albuterol (Ventolin) 2.5 mg INH NOW ONE Stop: 04/23/18 12:00 Last Admin: 04/23/18 12:00 Dose: 2.5 mg Albuterol/Ipratropium (Duoneb) 3 ml INH NOW ONE Stop: 04/23/18 14:16 Last Admin: 04/23/18 14:50 Dose: 3 ml Methylprednisolone (Solu-Medrol 125 Mg Vial) 60 mg IV Q6HR [facility] Reevaluation(s) Reevaluation #1: Patient has minimal improvement with bronchodilators. Reevaluation #2: CT angiogram performed given lack of other findings and the possibility of hidden pneumonia, vascular abnormality or pulmonary embolism Consultations Consultation #1: Dr. Lynn happy to accept on his service, he had seen her about a week ago and states she looked relatively okay, and today's presentation is clearly a moves in the wrong direction. She will be brought into the hospital for further evaluation and characterization of her illness Vital Signs - 8 hr 04/23/18 11:30 04/23/18 12:00 04/23/18 12:06 Temperature Pulse Rate 67 68 72 Respiratory Rate 14 13 12 Blood Pressure Blood Pressure [Left Arm] 127/40 L 114/41 L Pulse Oximetry 94 97 95 04/23/18 13:08 04/23/18 13:30 04/23/18 14:00 Temperature Pulse Rate 73 77 76 Respiratory Rate 15 14 13 Blood Pressure Blood Pressure [Left Arm] 137/40 L 123/54 L 139/58 L Pulse Oximetry 99 100 96 04/23/18 14:30 04/23/18 14:55 04/23/18 15:00 Temperature Pulse Rate 82 80 85 Respiratory Rate 15 18 18 Blood Pressure Blood Pressure [Left Arm] 137/49 L 110/79 Pulse Oximetry 100 96 99 04/23/18 16:00 04/23/18 16:15 04/23/18 18:38 Temperature 97.6 F Pulse Rate 87 106 H 86 Respiratory Rate 20 21 Blood Pressure 139/62 Blood Pressure [Left Arm] 110/79 Pulse Oximetry 100 94 98 MDM - SOB/Dyspnea Lab Data Result diagrams: 04/23/18 10:35 04/23/18 10:35 Lab Results 04/23/18 04/23/18 04/23/18 Range/Units 10:35 10:35 10:35 WBC 4.4 L (4.5-11.0) X10^3/uL RBC 4.03 (4.0-5.2) X10^6/uL Hgb 12.6 (12.0-16.0) g/dL Hct 39.7 (36-46) % MCV 98.5 (80-100) fL MCH 31.2 (26-34) PG MCHC 31.7 (30-36) % RDW 16.5 H (11.6-14.8) % Plt Count 236 (150-400) X10^3/uL Neut % (Auto) 60.3 (50-75) % Lymph % (Auto) 24.1 L (25-40) % [place] % (Auto) 12.2 (3-14) % Eos % (Auto) 2.6 (2-4) % Baso % (Auto) 0.8 (0-2) % Neut # (Auto) 2600 (0672-5500) /uL Lymph # (Auto) 1100 (9520-9923) /uL [place] # (Auto) 500 (0-900) /uL Eos # (Auto) 100 (0-450) /uL Baso # (Auto) 0 (0-100) /uL PT 11.3 (10.1-12.7) SECONDS INR 1.0 (0.9-1.3) APTT 33 (26.4-36.2) SECONDS Sodium 138 (137-145) mmol/L Potassium 3.6 (3.4-5.1) mmol/L Chloride 94 L (98-107) mmol/L Carbon Dioxide 31 (22-32) mmol/L BUN 21 H (7-17) mg/dL Creatinine 1.10 H (0.52-1.04) mg/dL Estimated GFR 48.8 L (>60) mL/min BUN/Creatinine Ratio 19.1 (6-22) Glucose 111 H (80-110) mg/dL Calcium 9.6 (8.4-10.2) mg/dL Total Bilirubin 0.5 (0.2-1.3) mg/dL AST 78 H (14-36) IU/L ALT 40 (9-52) IU/L Alkaline Phosphatase 89 (38-126) U/L Total Creatine Kinase 39 (30-135) U/L CK-MB (CK-2) TNP CK-MB (CK-2) Rel Index TNP Troponin I < 0.012 (0.01-0.034) ng/mL B-Natriuretic Peptide < 100 (<100) Total Protein 7.5 (6.3-8.2) g/dL Albumin 4.4 (3.5-5.0) g/dL Globulin 3.1 (1.7-4.1) g/dL Albumin/Globulin Ratio 1.4 (1.0-2.8) Lipase 223 (23-300) U/L Urine Dip Bedside Urine Glucose Negative Bedside Urine Bilirubin - Negative Bedside Urine Ketone - Negative Urine Specific [place] 1.015 Bedside Urine Occult Blood - Negative Bedside Urine pH 5.5 Bedside Urine Protein +/- 15 Bedside Urine Urobilinogen - Negative Bedside Urine Nitrite - Negative Bedside Urine Leukocytes - Negative Esterase Discharge Plan Departure Patient Disposition: Admitted as Observation Clinical Impression: Acute dyspnea, Hypoxia Discharge Date/Time: 04/23/18 16:12 Interventions: ED Discharge Assessment Last Done: 04/23/18 16:09 Admit Date/Time: 04/23/18 14:52 Admit Provider: Pedro Lynn
[2018-04-23 15:13] LABS: B Type Natriuretic Peptide < 100 (<100)
[2018-04-23] MEDS: PREGABALIN 50 MG CAPSULE 200 MG PO ×2 (17:40→21:07)
[2018-04-23] MEDS: SILDENAFIL 20 MG TABLET PO ×2 (17:42→21:09)
[2018-04-23] MEDS: ASPIRIN EC 81 MG TABLET PO (17:42)
[2018-04-23] MEDS: MAGNESIUM OXIDE 400 MG TABLET 200 MG PO (17:43)
[2018-04-23] MEDS: ACETAMINOPHEN 325 MG TABLET 975 MG PO (17:47)
[2018-04-23] MEDS: OXYCODONE/ACETAMINOPHEN 5/325 TABLET 1 TAB PO (17:52)
[2018-04-23] MEDS: BENZONATATE 100 MG CAPSULE PO (21:07)
[2018-04-23] MEDS: METOPROLOL ER 50 MG TABLET 100 MG PO (21:07)
[2018-04-23] MEDS: ATORVASTATIN 20 MG TABLET 80 MG PO (21:07)
[2018-04-23] MEDS: methylPREDNISolone 125 MG/2 ML VIAL 60 MG IV (21:07)
[2018-04-23] MEDS: LOSARTAN 25 MG TABLET PO (21:08)
[2018-04-23] MEDS: TRAMADOL 50 MG TABLET PO (21:10)
[2018-04-23] MEDS: CHLORZOXAZONE 500 MG 1 EACH PO (21:14)
--- NOTE | 2018-04-23 22:43 | PC.ADMIT ---
Admission Note:1600- pt arrived to floor via stretcher from ED. on oxygen walked to with sba. pt unsteady. also in room. orders rec'd med rec completed. pt tolerates room air but prefers to have oxygen. given prns med per request. discussed home meds. paged for new orders. Pt has tremors that control entire body. calls them seizures. Pt responsive during these episodes. they report that she has them up to four times a day, they happen more frequently if she is fatigued. Pt given prn to help this. brought form home. meds sent to pharmacy and stored in pharmacy. Pt uses call light. asks for assistance and waits. Pt belongings and call light within reach. pt had visitors in room. this perked her up after. but then after they left she was very tired and wheezy. calmed down with husbands help and oxygen. pt comes on and off oxygen. pt reports that her neck glands are swollen and feels like her throat is swollen. given some lemon swabs and a Popsicle. pt reported these helped. bed alarm on. side rails upx2 for pt safety. will continue to monitor.
[2018-04-24] VITALS (11 sets, daily range): BP systolic 130–142; BP diastolic 52–75; PULSE 67–99; RESP 16–20; TEMP 36.3–36.7; O2SAT 1–100
--- NOTE | 2018-04-24 | DI.ECHO.S_ITS ---
[facility]---------+ [facility] +---------+ : : [address] : [address] : : : : [id number] : : : : Phone: [phone]+ Echocardiogram Report + + :Name: SHARI RODRIGUES Study Date: 04/24/2018 Height: 62 in : :[facility] Exam Location: [facility] Weight: 197 lb : : Gender: Female BSA: 1.9 m2 : :: 1945 Age: 73 yrs BP: 139/62 mmHg: :Reason For Study: Pulmonary - Hypertension/ Diastolic : :dysfuntion : :Ordering Physician: Juan : :Hospitalist Performed By: Diane Page : :Referring: KIAH ARCHULETA : + + Interpretation Summary Left ventricular systolic function is normal without focal wall motion abnormalities with the ejection fraction visually estimated to be 70-75%. Left ventricular wall thickness is borderline increased with moderate proximal septal thickening but no echo evidence for significant left ventricular outflow tract obstruction. Diastolic parameters suggest probable normal left ventricular diastolic function and normal filling pressures. There has been no significant change since the previous study. The right ventricle is normal in size and function and is unchanged compared to the previous study. Pulmonary artery pressures cannot be estimated because of the lack of a measurable TR jet velocity but the IVC suggests a CVP of around 3 mmHg. Both atria are normal in size. There is mild aortic regurgitation that is unchanged compared to the previous study but there are no other significant valvular abnormalities. The ascending aorta is at the upper limits of normal in size but is unchanged compared to the previous study. Procedure: A two-dimensional transthoracic echocardiogram with color flow and Doppler was performed. The study quality was technically adequate. Comparison is made with the echocardiogram of 07/24/2014. The patient was in normal sinus rhythm during the exam. Left Ventricle: The left ventricle is normal in size. Left ventricular wall thickness is borderline increased. There is moderate proximal septal thickening noted. There is no echo evidence for significant left ventricular outflow tract obstruction. Left ventricular systolic function is normal without focal wall motion abnormalities. The ejection fraction is estimated to be 70-75%. Diastolic parameters suggest probable normal left ventricular diastolic function and normal filling pressures. There has been no significant change since the previous study. Right Ventricle: The right ventricle is normal in size and function. This is unchanged compared to the previous study. Atria: Both atria are normal in size. There is no Doppler evidence for an interatrial shunt. Mitral Valve: There is mild mitral annular calcification. The mitral valve leaflets appear borderline thickened, but open well. There is trace mitral regurgitation. Aortic Valve: The aortic valve is trileaflet. The aortic valve opens well. There is mild aortic regurgitation. This is unchanged compared to the previous study. Tricuspid Valve: The tricuspid valve is normal in structure and function. No tricuspid regurgitation. Pulmonary artery pressures cannot be estimated because of the lack of a measurable TR jet velocity but the IVC suggests a CVP of around 3 mmHg. Pulmonic Valve: The pulmonic valve is not well visualized. There is a trace or physiologic amount of pulmonic regurgitation. There is no other significant valvular heart disease. Great Vessels: The aortic root is normal size. The ascending aorta is at the upper limits of normal in size. This is unchanged compared to the previous study. The aortic arch could not be visualized. The pulmonary artery is not well visualized, but is probably normal size. The IVC is of normal diameter and collapses greater than 50% with a sniff. This suggests a low right atrial pressure of 3 mm Hg. Pericardium/ Pleura There is no pericardial effusion. There is a moderate left-sided pleural effusion. MMode/2D Measurements & Calculations LVIDd: 4.6 cm Ao root diam: 3.0 cm LVIDs: 2.5 cm asc Aorta Diam: 3.4 cm FS: 45.1 % EPSS: 0.20 cm IVSd: 0.93 cm LVPWd: 1.1 cm LV martinez. diameter/BSA (cm/m^2): 2.4 LV sys. diameter/BSA (cm/m^2): 1.3 LA A2 area: 17.0 cm2 RA long axis: 4.3 cm LA A4 area: 16.2 cm2 RA area: 13.0 cm2 LA length (vol): 5.2 cm RA vol: 33.8 ml LA vol: 44.6 ml RA : 17.8 ml/m2 LA vol index: 23.5 ml/m2 IVC diam: 1.3 cm RVD1 (basal): 3.4 cm TAPSE: 2.6 cm Doppler Measurements & Calculations Ao V2 max: 185.9 cm/sec LVOT Max Bj: 148.4 cm/sec Ao V2 mean: 138.6 cm/sec LV V1 max P.8 mmHg Ao max P.8 mmHg LV V1 VTI: 31.5 cm Ao mean P.1 mmHg sev ratio: 0.82 Ao V2 VTI: 38.4 cm AI P1/2t: 526.7 msec AI dec slope: 201.8 cm/sec2 MV E max bj: 78.1 cm/sec TR max bj: 205.9 cm/sec MV A max bj: 106.5 cm/sec TR max P.0 mmHg MV E/A: 0.73 PA V2 max: 87.3 cm/sec Med Peak E' Bj: 5.6 cm/sec PA V2 mean: 59.6 cm/sec E/E' med: 14.0 PA mean P.6 mmHg Lat Peak E' Bj: 9.8 cm/sec PA Accel Time: 0.09 sec E/E' lat: 8.0 E/e' average: 11.0 MV dec time: 0.14 sec MV P1/2t: 42.1 msec MV P1/2t max bj: 79.2 cm/sec MVA(P1/2t): 5.2 cm2 Reading Physician:YOEL
[2018-04-24] MEDS: CHLORZOXAZONE 500 MG 1 EACH PO ×3 (02:31→19:09)
--- NOTE | 2018-04-24 03:02 | PC.NURSE ---
0200- pt has been increasingly getting anxious. Pt uses call light went home and pt has episodes of seizures where her whole body shakes. md international account executive paged ordered to give extra dose of meds. pt reported she takes two pills of the chlorzoxazone. Pt bed alarm on. does call and waits for assistance uses call light. after shaking episode pt woke up/oriented and answering questions. placed on simple mask with o2 6L as her nose was stuffed from nc. Pt stated this was much better. talked with patient about medications and oxygen use. stayed with patient for 10 minutes and pt able to calm down and relax and fall asleep. frequent checks competed. pt on continuous pulse ox. bed alarm on.
[2018-04-24] MEDS: methylPREDNISolone 125 MG/2 ML VIAL 60 MG IV ×3 (05:28→22:10)
[2018-04-24] MEDS: OXYCODONE/ACETAMINOPHEN 5/325 TABLET 1 TAB PO ×2 (05:29→20:31)
[2018-04-24 06:02] LABS: Add Manual Diff / Slide Review NO; Basophils Absolute Auto 0 /uL (0-100); Basophils Percent Auto 0.5 % (0-2); Eosinophils Absolute Auto 200 /uL (0-450); Eosinophils Percent Auto 3.7 % (2-4); Hematocrit 33.8 % (36-46); Hemoglobin 11.5 g/dL (12.0-16.0); Lymphocytes Absolute Auto 1500 /uL (1100-4500); Lymphocytes Percent Auto 31.7 % (25-40); Mean Corpuscular HGB Conc 33.9 % (30-36); Mean Corpuscular Hemoglobin 31.5 PG (26-34); Monocytes Absolute Auto 700 /uL (0-900); Monocytes Percent Auto 15.1 % (3-14); Neutrophils Absolute Auto 2300 /uL (1500-7000); Platelet Count 212 X10^3/uL (150-400); Red Blood Cell Count 3.64 X10^6/uL (4.0-5.2); Red Cell Distribution Width 15.9 % (11.6-14.8); White Blood Cell Count 4.7 X10^3/uL (4.5-11.0)
[2018-04-24 06:13] LABS: Alanine Aminotransferase 36 IU/L (9-52); Albumin 3.9 g/dL (3.5-5.0); Albumin Globulin Ratio 1.3 (1.0-2.8); Alkaline Phosphatase 83 U/L (38-126); Aspartate Aminotransferase 32 IU/L (14-36); BUN Creatinine Ratio 17.8 (6-22); Bilirubin Total 0.3 mg/dL (0.2-1.3); Blood Urea Nitrogen 16 mg/dL (7-17); Calcium 9.5 mg/dL (8.4-10.2); Carbon Dioxide 30 mmol/L (22-32); Chloride 96 mmol/L (98-107); Estimated Glomerular Filt Rate > 60.0 mL/min (>60); Globulin 2.9 g/dL (1.7-4.1); Glucose 104 mg/dL (80-110); HEMOLYSIS < 15 (0-50); Potassium 3.7 mmol/L (3.4-5.1); Sodium 136 mmol/L (137-145); Total Protein 6.8 g/dL (6.3-8.2)
--- NOTE | 2018-04-24 07:49 | P.PN_ITS ---
Subjective Date Patient Seen: 04/24/18 Time Patient Seen: 07:46 Interval history: Patient seen and evaluated this morning. Patient states she is doing well. She is still short of breath. Did not sleep much last night. On 1 L of oxygen. Sats are anywhere between 9495 currently 99%. She has some mild audible expiratory wheezes. She did need much last night she says maybe she feels a little bit better. No bowel movement for 3 days. Still complains of significant weakness. Exam Vital Signs (past 8 hours): - 04/24/18 05:20 Temperature 98.1 F Pulse Rate 67 Respiratory Rate 16 Blood Pressure 140/52 L Pulse Oximetry 100 Oxygen Delivery Method Nasal Cannula Oxygen Flow Rate 6 Narrative Exam Narrative: Gen.: Alert good historian HEENT: Pupils equal round and reactive or mucosa is moist neck is supple Cardio: S1-S2 regular rate and rhythm Respiratory: Lungs show increased work of breathing. Some audible upper respiratory wheezes. Lungs sound clear Abdomen: Soft nontender no rebound or guarding no liver spleen enlargement no appreciable hernias Extremities: Increased edema from yesterday with the swelling of hands Neurologic: Grossly intact. Objective Labs Result Diagrams: 04/24/18 05:28 04/24/18 05:28 Labs: Laboratory Results - last 24 hr 04/23/18 04/23/18 04/23/18 10:35 10:35 10:35 WBC 4.4 L RBC 4.03 Hgb 12.6 Hct 39.7 MCV 98.5 MCH 31.2 MCHC 31.7 RDW 16.5 H Plt Count 236 Neut % (Auto) 60.3 Lymph % (Auto) 24.1 L Dickinson % (Auto) 12.2 Eos % (Auto) 2.6 Baso % (Auto) 0.8 Neut # (Auto) 2600 Lymph # (Auto) 1100 Dickinson # (Auto) 500 Eos # (Auto) 100 Baso # (Auto) 0 PT 11.3 INR 1.0 APTT 33 Sodium 138 Potassium 3.6 Chloride 94 L Carbon Dioxide 31 BUN 21 H Creatinine 1.10 H Estimated GFR 48.8 L BUN/Creatinine Ratio 19.1 Glucose 111 H Calcium 9.6 Total Bilirubin 0.5 AST 78 H ALT 40 Alkaline Phosphatase 89 Total Creatine Kinase 39 CK-MB (CK-2) TNP CK-MB (CK-2) Rel Index TNP Troponin I < 0.012 B-Natriuretic Peptide < 100 Total Protein 7.5 Albumin 4.4 Globulin 3.1 Albumin/Globulin Ratio 1.4 Lipase 223 04/24/18 04/24/18 05:28 05:28 WBC 4.7 RBC 3.64 L Hgb 11.5 L Hct 33.8 L MCV 93.0 D MCH 31.5 MCHC 33.9 RDW 15.9 H Plt Count 212 Neut % (Auto) 49.0 L Lymph % (Auto) 31.7 Dickinson % (Auto) 15.1 H Eos % (Auto) 3.7 Baso % (Auto) 0.5 Neut # (Auto) 2300 Lymph # (Auto) 1500 Dickinson # (Auto) 700 Eos # (Auto) 200 Baso # (Auto) 0 PT INR APTT Sodium 136 L Potassium 3.7 Chloride 96 L Carbon Dioxide 30 BUN 16 Creatinine 0.90 Estimated GFR > 60.0 BUN/Creatinine Ratio 17.8 Glucose 104 Calcium 9.5 Total Bilirubin 0.3 AST 32 ALT 36 Alkaline Phosphatase 83 Total Creatine Kinase CK-MB (CK-2) CK-MB (CK-2) Rel Index Troponin I B-Natriuretic Peptide Total Protein 6.8 Albumin 3.9 Globulin 2.9 Albumin/Globulin Ratio 1.3 Lipase Assessment & Plan Plan Narrative: 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 Small amounts. Still receiving IV steroids inhaled steroids and nebulizers. Oxygen status is stable at this point. Obtain respiratory PCR panel sputum culture. Continue with inhaled beta agonist and ipratropium and steroids. Patient with congestive heart failure history of diastolic dysfunction her BNP is normal although I feel like she is fluid overloaded. She has diastolic dysfunction and pulmonary hypertension on a echocardiogram done down at [facility]. She has swelling today. We will go ahead and provide her Lasix 80 mg IV twice daily with potassium replacement. In the past this has helped with her breathing as well. And will proceed with diuresis. Monitor urine output and weights and see if this would help with her breathing as well. Coronary artery disease patient has known history of coronary artery disease with stents placed. Will continue with her aspirin Plavix beta-mesfin and angiotensin receptor mesfin as well as her statin. No active coronary artery disease symptoms chest x-ray is normal. Initially some of her breathing issues were thought to be cardiac related. She has a normal BNP in the emergency room. Review of echocardiogram from [facility] shows diastolic dysfunction. And pulmonary hypertension Essential hypertension. Blood pressure slightly elevated. Will hold off on blood pressure changes due to the diuresis today. Hyperlipidemia. Will go ahead and continue with her current statin medication. Fibromyalgia chronic pain. We will continue with Tylenol Ultram an intermittent pain medication. Hyperlipidemia. Patient will be placed back on her statin. Disposition plan respiratory PCR continue with steroids and nebulizers. Proceed with diuresis have work with physical therapy. Work on bowel activity. Quality VTE Deep Vein Thrombosis/Pulmonary Embolism Present on Admission: Yes
[2018-04-24] MEDS: Budesonide-Formoterol [Symbicort] 2 PUFF 2 EACH INHALATION ×2 (09:39→20:07)
[2018-04-24] MEDS: FUROSEMIDE 100 MG/10 ML VIAL 80 MG IV (09:47)
[2018-04-24] MEDS: PREGABALIN 50 MG CAPSULE 200 MG PO ×3 (09:52→20:32)
--- NOTE | 2018-04-24 12:29 | CM.DANOTE ---
Patient is a 73 year old female who was admitted on 04/23/18 for SOB, difficulty breathing. Pt has MCR and PRE DIM for insurance and her PCP is Dr. Pedro Lynn. EMR was reviewed. Per MD, pt with hypoxia and currently on 6L oxygen mask and will continue to diurese and work with PT and not stable for discharge. PT ordered and pending. SW met bedside with pt and spouse and explained role and updated white board and they confirm that they live at home in [place] and pt is mostly Independent with ADL's at baseline but spouse very supportive and assists pt with any needs. Pt's DPOA is her spouse Suman who drives for the pt. Pt has home oxygen through [facility] [place] at baseline and stating that pt continues to have ongoing respiratory issues and has not gotten back to her level of activities for the past few years. Pt and spouse are interested in finding out more information about [facility] towards help in reducing readmission and breathing difficulty to determine if pt would qualify and benefit from Trilogy. SW provided the [facility] brochure and will fax clinicals for [facility] to review towards possibly meeting bedside with spouse and pt with further information. SW made a copy of pt's completed POLST form from home and put in pt's chart. Pt denies any hx of HH or SNF but state she would be agreeable to HH if recommended. Still pending PT eval and recommendations. Preference is home with supportive spouse when medically stable. Plan: SW to follow closely after PT eval and recommendations towards determining if pt safe for d/c home with supportive spouse. SW to follow to determine [facility] if pt is a candidate to qualify from [facility] to reduce her risk of readmission. JENNIFFER Arenas Discharge Planning/Care Management Advanced directive, confirm from FAMILY Start: 04/23/18 21:04 Freq: Q24H Status: Active Protocol: Document 04/23/18 21:04 [email or web address] (Rec: 04/23/18 21:42 CHRISTOPH [id number]) Advance Directive, confirm on record Time 18:00 Person contacted virg- Copy received No CM Discharge Assessment Start: 04/24/18 12:26 Freq: Status: Active Protocol: Document 04/24/18 12:27 BF (Rec: 04/24/18 12:29 BF [id number]) Discharge Planning Assessment Assigned Program Mgr JENNIFFER Escamilla DPOA/Assigned Designee Name spouse Suman Advance Directives? Yes Advance Directives on File Yes History Provided By Patient Family Member Medical Record Has Patient been admitted in last 30 No days? Prior Living Arrangements House Household Members spouse Type of transporation used prior to Relies on Others admit Independent with ADL's Yes: mostly Is patient alert and oriented? Yes Needs Assistance With Managing Medications Home Chores / Shopping Caregiver for Another No Community Services used prior to Oxygen Therapy admission: Comment Home oxygen through [facility] Comment Waiting for PT eval and recommendations Barriers to Discharge No Discharge Plan Home Community Services Oxygen Therapy Transportation Arrangement Spouse bedside and can provide transport Additional Comment Waiting for PT recommendations to determine if safe for d/c home with spouse Whiteboard Updated in Patient Room with Yes name and ext. # of Program Mgr Review Status In Process Please Provide Date Initial DC 04/24/18 Assessment Was Performed Next Review Type Continued Stay Review
--- NOTE | 2018-04-24 12:35 | PT.IPTN ---
Current Diagnoses Sarcoidosis of lung (04/23/18) Physical Therapy Treatment Note M3 PT-IP Subjective Start: 04/24/18 12:34 Freq: NEEDED Status: Active Protocol: Document 04/24/18 12:34 AB (Rec: 04/24/18 12:35 AB [id number]) Subjective Physical Therapy Visit Type Notes checked on pt and medical office technician with pt for echo. stated that it will take ~ 40 min for the procedure. will check on pt again.
[2018-04-24 12:54] LABS: Adenovirus Not Detected (Not Detect); Bordetella pertussis Not Detected (Not Detect); Chlamydophila pneumoniae Not Detected (Not Detect); Coronavirus 229E Not Detected (Not Detect); Coronavirus HKU1 Not Detected (Not Detect); Coronavirus NL 63 Not Detected (Not Detect); Coronavirus OC43 Not Detected (Not Detect); Human Metapneumovirus Not Detected (Not Detect); Human Rhinovirus/Enterovirus Not Detected (Not Detect); Influenza A Not Detected (Not Detect); Influenza B Not Detected (Not Detect); Mycoplasma pneumoniae Not Detected (Not Detect); Parainfluenza Virus 1 Not Detected (Not Detect); Parainfluenza Virus 2 Not Detected (Not Detect); Parainfluenza Virus 3 Not Detected (Not Detect); Parainfluenza Virus 4 Not Detected (Not Detect); Respiratory Syncytial Virus Detected (Not Detect)
[2018-04-24] MEDS: CLOPIDOGREL 75 MG TABLET PO (12:56)
[2018-04-24] MEDS: POTASSIUM CHLORIDE 20 MEQ TAB PO ×2 (12:56→17:45)
[2018-04-24] MEDS: DOCUSATE 100 MG CAPSULE PO ×2 (12:57→20:31)
[2018-04-24] MEDS: METOPROLOL ER 50 MG TABLET 100 MG PO ×2 (12:57→20:32)
[2018-04-24] MEDS: ENOXAPARIN 40 MG/0.4 ML SYRINGE SUBCUT (12:57)
[2018-04-24] MEDS: SILDENAFIL 20 MG TABLET PO ×3 (12:57→23:00)
[2018-04-24] MEDS: BENZONATATE 100 MG CAPSULE PO (13:24)
--- NOTE | 2018-04-24 16:17 | PT.IIE ---
Current Diagnoses Sarcoidosis of lung (04/23/18) Surgical History (Last Reviewed 04/23/18 @ 15:59 by Pedro Lynn MD) History of surgery (Resolved ~2016) Status post surgery (03/15/10) Medical History (Last Reviewed 04/23/18 @ 15:05 by Kory Fox DO) Coronary artery disease (Chronic) Fibromyalgia (Chronic) Hypertension (Chronic) Leukocytosis (Chronic) Oxygen dependent (Chronic) Sarcoidosis (Chronic) Tachycardia (Chronic) Physical Therapy Inpatient Evaluation/Re-Eval M1 PT/OT-IP Prior Functional Status Start: 04/24/18 12:34 Freq: NEEDED Status: Active Protocol: Document 04/24/18 15:15 (Rec: 04/24/18 16:17 [id number]) Medical Review Prior Functional Status Medical History Reviewed Yes Communication No communication deficits noted except slow speech and SOB easily. Pt has to break her sentence into pieces. Mobility and Gait Pt's spouse Suman states he has to help her for mobility at all times with CLIENT DELIVERY MANAGER for ADLs and IADLs for the past 5 years. Pt does not use AD for ambulation but she uses w/c for community mobility with Suman's help. Suman states pt was able to amb as far as 50 feet with CLIENT DELIVERY MANAGER without rest prior to hospitalization. Activities of Daily Living and IADL's Pt required CLIENT DELIVERY MANAGER/ CGA assistance for ADLs at all times from her spouse Suman without using AD, and dependent on Suman for IADLs. Pt states She has a low activity tolerance so i have to help her. Social History Household Members spouse Living Arrangements House Number of Floors (Floors) One Floor Number of Stairs To Enter/Railing? ramp to entrance and 3 [address] from garage with L rail going up. Home Environment Walk in Shower Home Equipment Manual Wheelchair Raised Toilet Seat w/Armrests Shower Seat with Backrest Grab Bars Near Toilet Grab Bars In Shower Employment Status Retired Additional Social History Comment Pt lives with his spouse Suman in a 1 level house in [place]. Suman has been pt' s CG for the past 5 years. Pt has shown increased weakness and SOB progressively over the years due to her CHF, kidney failure and pulmonary sarcoidosis. Suman states pt usually got up in the morning to go to bathroom, and like to walk around family room and watch tv during the day with his hand held assist at all times. He will use w/c for community mobility. Pt also has 3L O2 NC on at all times and Suman states pt O2 sat always maintain >90%, but dont know why she always sounded like having difficulty in breathing. Suman also states Pt has tremors that control entire body. calls them seizures. Pt responsive during these episodes. they report that she has them up to four times a day, they happen more frequently if she is fatigued. M2 PT-IP Current Condition Start: 04/24/18 12:34 Freq: NEEDED Status: Active Protocol: Document 04/24/18 15:15 (Rec: 04/24/18 16:17 [email or web address]) Physical Therapy Current Condition Current Condition Evaluation Date 04/24/18 Treatment Diagnosis Pulmonary Sarcoidosis, SOB, difficulty in walking Onset Date 04/23/18 Weight Bearing Status Weight Bearing Status Weight Bear as Tolerated M3 PT-IP Subjective Start: 04/24/18 12:34 Freq: NEEDED Status: Active Protocol: Document 04/24/18 15:15 HH (Rec: 04/24/18 16:17 [email or web address]) Subjective Physical Therapy Visit Type Type Initial Evaluation Visit Start Time 15:15 Visit Stop Time 15:40 Total Visit Minutes 25 Notes Pt was in bathroom for toileting with her spouse's help upon assessment. Number of GRINDER AND HONER OPERATOR AUTOMATIC Visits 0 Physical Therapy Visit Comments Patient Comments Pt agreeable to mobilize with PT with spouse at bedside. Patient Goals To return home with her spouse Therapy Pain Assessment Pain Present Pain Present Denied Pain M4 PT-IP Mobility and Gait Start: 04/24/18 12:34 Freq: NEEDED Status: Active Protocol: Document 04/24/18 15:15 HH (Rec: 04/24/18 16:17 [id number]) PT-Bed Mobility Assessment Sit to Supine Sit to Supine Independent Scooting Scooting to Edge of Bed Independent Scooting Up and Down in Bed Independent PT-Transfer Assessment Sit to and From Stand Sit to and from Stand Standby Assistance 1 Person Assistance Use of Upper Extremities Equipment Transfer Assistive Device Bed Rail Transfers Transfer Destination Bed Toilet Transfer Technique Stand Step Pivot Transfer Ability Level of Assist Standby Assistance 1 Person Assistance Use of Upper Extremities Comments Mobility Comments Pt was in her bathroom with her spouse upon assessment. Pt stood up from toilet without help but used UEs to push off from grab bars. She was then amb with her back to bed with CLIENT DELIVERY MANAGER. Pt c/o fatigue and requested to return to bed . She was independent for bed mobility and able to scoot up and down in bed. O2 sat maintain >92% without NC the whole time. However, pt does appear very fatigue and SOB. Pt was unable to communicate with full sentence. Pt experienced seizure episode as Suman called for a couple minutes after returned to bed. RN notified. Gait Assessment Gait Gait Assistance Required: Contact Guard Assist 1 Person Assist Distance (Feet) 10 Able to Maintain Weight Bearing Status Yes During Gait Assistive Devices Assistive Device Gait Belt Gait Deviations General Gait Pattern Decreased Stride Length Decreased Feet Clearance Factors Limiting Gait Function Factors Limiting Gait Function Decreased Activity Tolerance Decreased Strength Respiratory Distress Comments Gait Comments Pt amb from bathroom toilet to bed with CLIENT DELIVERY MANAGER from her spouse. Pt did c/o SOB and fatigue and requested to return to bed for rest. Suman states her walking speed is around the same but she definitely gets tired easier than before. Stair Climbing Assessment Comments Stair Climbing Comments unable to attempt PT-Balance Assessment Sitting Balance and Reactions Static Sitting Balance Ability Normal Dynamic Sitting Balance Ability Normal Standing Balance and Reactions Static Standing Balance Ability Good Dynamic Standing Balance Ability Good M5 PT-IP Objective Assessments Start: 04/24/18 12:34 Freq: NEEDED Status: Active Protocol: Document 04/24/18 15:15 (Rec: 04/24/18 16:17 [id number]) Orientation Orientation/Cognition Level of Alertness Alert Orientation Name Age Birthday Month Date Year Day of Week Place Situation Language Function Ability No Deficits Noted Safety Awareness Understands Safety Issues Memory Description No Deficits Noted Comments SOB, difficulty to form full sentence Gross Range of Motion Upper Extremity ROM Assessment Within Functional Limits Lower Extremity ROM Assessment Within Functional Limits Strength Upper Extremity Strength Assessment Within Functional Limits Lower Extremity Strength Assessment Within Functional Limits Coordination Assessment Gross Coordination Gross Coordination WNL Sensation Assessment Sensation Gross Sensation WNL Muscle Tone Muscle Tone WNL Yes M6 PT-IP Treatment Start: 04/24/18 12:34 Freq: NEEDED Status: Active Protocol: Document 04/24/18 15:15 (Rec: 04/24/18 16:17 [email or web address]) Physical Therapy Treatment Education Education Provided Safety M7 PT-IP Assessment and Plan Start: 04/24/18 12:34 Freq: NEEDED Status: Active Protocol: Document 04/24/18 15:15 HH (Rec: 04/24/18 16:17 [email or web address]) PT Summary Assessment and Plan Potential Rehabilitation Potential Good Status of Condition at Evaluation Evolving Summary Impairments Transfers Gait Activity Tolerance Assessment Summary Pt is a pleasant 73yo female admitted to due to SOB, weakness and pulmonary sarcoidosis. Pt's spouse Suman at bedside upon assessment. Pt was able to transfer and amb from toilet back to bed with Suman's CLIENT DELIVERY MANAGER. Pt was steady but presented significant fatigue and SOB after. Pt's O2 sat was able to maintain >90% without NC. She then had a episode of seizure and Suman reports it usually happens when pt is tired. RN notified. In my professional opinion, pt presented very low tolerance for functional activities which could be a burden for her spouse. Pt might be benefit from using 4WW for her mobility so she could take breaks if needed. Recommend d/ c SNF at this point to address her aforementioned impairments, along with her sudden episodes of seizure prior to d/c home. If pt was able return to reach PLOF/ rehab goals, d/c home with assistance and HH would be another option. Goals Bed Mobility Goal Independent Transfer Goal Contact Guard Assistance Four Wheeled Walker Gait Goal Contact Guard Assistance Four Wheel Walker Gait Distance 50 Other Goals 50 feet without break ( baseline) able to use 4WW safely negotiate 3 steps with L rail Days to Meet Goals 5 Frequency of Treatment Frequency Of Treatment Once a Day Treatment Plan Physical Therapy Treatment Plan Transfer Training Gait Training Therapeutic Exercise Balance Retraining Discharge Planning Other Recommendations and Next Treatment transfer, gait training as diana Focus attempt 4WW Recommendations To Nursing Amount of Assist Needed 1 Person Assist Discharge Recommendations PT Discharge Recommendations Home with Assistance Home Health SNF Rehab Equipment Needed for Home Before 4WW Discharge
[2018-04-24] MEDS: FUROSEMIDE 40 MG/4 ML VIAL IV (18:37)
[2018-04-24] MEDS: ATORVASTATIN 20 MG TABLET 80 MG PO (20:31)
[2018-04-24] MEDS: LOSARTAN 25 MG TABLET PO (20:32)
[2018-04-24] MEDS: LORazepam 0.5 MG TABLET PO ×2 (21:05→21:36)
--- NOTE | 2018-04-24 22:01 | PC.NURSE ---
2039- Patient had a shaking episode lasting 4 minutes. This was the 4th episode on shift. Patient began breathing through the mouth during episode and O2 sat dropped from 96% on N/C 1.5L/min to 90%. RN called RT and got patient on mask on 6 L/min after which O2 sat maninder to 99%. Patient reports pain in her bones and tired muscles after episode. Patient reported Ativan (lorazepam) was effective for episode in the ER. Patient was oriented after the episode though tired. Cold washcloth placed on forehead for comfort. 2199- When patient was reassessed post episode, the patient appeared to still be tired and appeared to have pain due to wincing seen in her face. Patient was not as talkative or lively as when seen on shift start at 1500.
[2018-04-25] VITALS (13 sets, daily range): BP systolic 119–140; BP diastolic 52–70; PULSE 76–97; RESP 14–24; TEMP 36.6–37.1; O2SAT 92–98
[2018-04-25] MEDS: LORazepam 1 MG TABLET PO (00:30)
--- NOTE | 2018-04-25 00:33 | PC.NURSE ---
Addendum entered by Georgette Villarreal R.N. 04/25/18 03:17: Spoke to Dr Aly regarding the seizure like event, witnessed at time of assessment (shaking and unresponsiveness), who ordered a prolactin level stat. Made several checks on pt to assess for any ongoing shaking and found the pt be somnolent but arousable. Prolactin level came back as 72.0, called Dr Aly back to report abnormal lab value. Will continue to monitor for ongoing shaking and administer Ativan per MAR if necessary. Original Note: Shift note: This RN was called to pt's room for a prolonged shaking episode witnessed by daughter of pt, Fide, that was timed at 25 minutes. Attempted to wake pt by calling her name and gentle pressure on shoulders. At this time pt's eyes were closed and unresponsive to attempts and was shaking. Initiated sternal rub due to prolonged nature of episode as reported by pt's daughter. Sternal rub took approximately 45 secs to elicit a response from the pt who started speaking. Asked pt if she was okay to which she responded almost there. Pt continued to shake on and off and was able to now open eyes and answer in simple responses. Pt's daughter reported that Ativan had worked for previous episode but per MAR was not available by IV only PO and this RN did not feel it was safe at the time due to pt's somnolence. Notified coordinator of need for sternal rub and concerns to which she said to contact inventory controller physician. Did thorough head to toe assessment at which time pt became more responsive and reported a 9/10 headache. Pt became much more alert and oriented and felt comfortable giving PO Ativan per MAR and will be paging MD inventory controller to report concerns.
[2018-04-25] MEDS: FUROSEMIDE 40 MG/4 ML VIAL IV ×3 (02:30→18:09)
[2018-04-25 05:51] LABS: Add Manual Diff / Slide Review NO; Basophils Absolute Auto 100 /uL (0-100); Basophils Percent Auto 0.5 % (0-2); Eosinophils Absolute Auto 0 /uL (0-450); Hemoglobin 11.9 g/dL (12.0-16.0); Lymphocytes Absolute Auto 1500 /uL (1100-4500); Lymphocytes Percent Auto 12.7 % (25-40); Mean Corpuscular HGB Conc 33.1 % (30-36); Mean Corpuscular Hemoglobin 31.1 PG (26-34); Mean Corpuscular Volume 93.7 fL (80-100); Monocytes Absolute Auto 400 /uL (0-900); Monocytes Percent Auto 3.6 % (3-14); Neutrophils Absolute Auto 9600 /uL (1500-7000); Neutrophils Percent Auto 83.2 % (50-75); Platelet Count 281 X10^3/uL (150-400); Red Blood Cell Count 3.84 X10^6/uL (4.0-5.2); Red Cell Distribution Width 15.9 % (11.6-14.8); White Blood Cell Count 11.6 X10^3/uL (4.5-11.0)
[2018-04-25 06:00] LABS: Blood Urea Nitrogen 22 mg/dL (7-17); Calcium 10.2 mg/dL (8.4-10.2); Carbon Dioxide 28 mmol/L (22-32); Chloride 97 mmol/L (98-107); Estimated Glomerular Filt Rate 54.5 mL/min (>60); Glucose 166 mg/dL (80-110); HEMOLYSIS < 15 (0-50); Potassium 4.7 mmol/L (3.4-5.1); Sodium 136 mmol/L (137-145)
[2018-04-25] MEDS: methylPREDNISolone 125 MG/2 ML VIAL 60 MG IV (06:14)
[2018-04-25] MEDS: SODIUM CHLORIDE 0.9% FLUSH 10 ML IV ×3 (06:14→21:13)
[2018-04-25] MEDS: Budesonide-Formoterol [Symbicort] 2 PUFF 2 EACH INHALATION ×2 (07:52→17:26)
--- NOTE | 2018-04-25 08:32 | PM.PN.1 ---
Subjective Date Patient Seen: 04/25/18 Time Patient Seen: 07:32 Interval history: Patient did well yesterday. Had some more for tremors last night. Had an elevated procalcitonin. She has previously had a complete neurological workup for this him MRI brain EEG which were all normal. The do not think her tremors or due to seizure activity. They are unsure what it could be from. She was given lorazepam last night which made her sleeping she is still quite sleepy this morning. and daughter at bedside. Respiratory status is about the same not better not worse despite the steroids and nebulizer treatments. Her respiratory PCR panel came back positive. Go ahead and stop her IV steroids place her on oral steroids and taper down. Exam Vital Signs (past 8 hours): - 04/25/18 04:08 04/25/18 07:57 Temperature 97.9 F Pulse Rate 76 81 Respiratory Rate 24 20 Blood Pressure 129/63 Pulse Oximetry 98 Fraction of Inspired Oxygen 50 Oxygen Delivery Method Simple Mask Oxygen Flow Rate 6 Narrative Exam Narrative: Gen.: Very sleepy this morning probably due to the lorazepam HEENT: Pupils equal round and reactive or mucosa is moist Cardio: Regular rate and rhythm Respiratory: Mild rhonchorous upper breath sounds Abdomen: Soft mildly obese Extremities: Trace edema Objective Labs Result Diagrams: 04/25/18 05:30 04/25/18 05:30 Labs: Laboratory Results - last 24 hr 04/24/18 04/25/18 04/25/18 10:25 02:11 05:30 WBC 11.6 H D RBC 3.84 L Hgb 11.9 L Hct 36.0 MCV 93.7 MCH 31.1 MCHC 33.1 RDW 15.9 H Plt Count 281 Neut % (Auto) 83.2 H D Lymph % (Auto) 12.7 L [place] % (Auto) 3.6 Eos % (Auto) 0.0 L Baso % (Auto) 0.5 Neut # (Auto) 9600 H Lymph # (Auto) 1500 [place] # (Auto) 400 Eos # (Auto) 0 Baso # (Auto) 100 Sodium Potassium Chloride Carbon Dioxide BUN Creatinine Estimated GFR BUN/Creatinine Ratio Glucose Calcium Prolactin 72.0 H Chlamy pneumoniae PCR Not detected Adenovirus (PCR) Not detected B.parapertussis DNA PCR Not detected Coronavirus OC43 (PCR) Not detected Coronavirus HKU1 (PCR) Not detected Coronavirus 229E (PCR) Not detected Coronavirus NL63 (PCR) Not detected Human Metapneumovir PCR Not detected Influenza Type A (PCR) Not detected Influenza Type B (PCR) Not detected M. pneumoniae (PCR) Not detected Parainfluenza 1 (PCR) Not detected Parainfluenza 2 (PCR) Not detected Parainfluenza 3 (PCR) Not detected Parainfluenza 4 (PCR) Not detected RSV (PCR) Detected H Entero/Rhino (PCR) Not detected 04/25/18 05:30 WBC RBC Hgb Hct MCV MCH MCHC RDW Plt Count Neut % (Auto) Lymph % (Auto) [place] % (Auto) Eos % (Auto) Baso % (Auto) Neut # (Auto) Lymph # (Auto) [place] # (Auto) Eos # (Auto) Baso # (Auto) Sodium 136 L Potassium 4.7 Chloride 97 L Carbon Dioxide 28 BUN 22 H Creatinine 1.00 Estimated GFR 54.5 L BUN/Creatinine Ratio 22.0 Glucose 166 H Calcium 10.2 Prolactin Chlamy pneumoniae PCR Adenovirus (PCR) B.parapertussis DNA PCR Coronavirus OC43 (PCR) Coronavirus HKU1 (PCR) Coronavirus 229E (PCR) Coronavirus NL63 (PCR) Human Metapneumovir PCR Influenza Type A (PCR) Influenza Type B (PCR) M. 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 IV steroid nebulizers are really helping. Will stop her IV steroids today. Place her on orals continue with nebulizers as needed as needed. Her respiratory panel today tested positive for RSV virus. Which may or may not be contributing to her shortness of breath.. Congestive heart failure exacerbation of diastolic dysfunction acute. Echocardiogram was repeated which showed hyperdynamic ejection fraction. Previously she has responded to diuretics in hospitalization. Will continue with IV Lasix 40 mg 3 times a day with oral potassium supplement monitor closely her electrolytes and see if this helps with her breathing. 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 The neurologist says she does not have a seizure disorder. She has had a couple of episodes here in the hospital. Although someone ordered a prolactin level which was elevated is previously been elevated before at a high level. She responds to muscle relaxers and was given Ativan. I guess will continue with small dose of that help with the nervousness anxiety. Coronary artery disease patient has known history of coronary artery disease with stents placed. Stable at this point continue with beta-mesfin angiotensin receptor mesfin aspirin and Plavix Essential hypertension. Blood pressure slightly elevated. Stable continue with diuresis Hyperlipidemia. Will go ahead and continue with her current statin medication. Fibromyalgia chronic pain. We will continue with Tylenol Ultram an intermittent pain medication. Hyperlipidemia. Patient will be placed back on her statin. Disposition plan stop IV steroids oral steroids today. Work on diuresis with Lasix. As needed lorazepam for the pseudoseizures. Have patient work with physical therapy. Approximately 35 min was spent time [id number] with patient and family discussing care and long-term health plans. Anticipate prolonged hospital stay Quality VTE Deep Vein Thrombosis/Pulmonary Embolism Present on Admission: Yes
[2018-04-25] MEDS: predniSONE 20 MG TABLET 60 MG PO (08:58)
[2018-04-25] MEDS: PREGABALIN 50 MG CAPSULE 200 MG PO ×3 (08:59→21:12)
[2018-04-25] MEDS: METOPROLOL ER 50 MG TABLET 100 MG PO ×2 (09:00→21:12)
[2018-04-25] MEDS: POTASSIUM CHLORIDE 20 MEQ TAB PO ×3 (09:05→17:02)
[2018-04-25] MEDS: CHLORZOXAZONE 500 MG 1 EACH PO ×2 (09:05→18:58)
[2018-04-25] MEDS: CLOPIDOGREL 75 MG TABLET PO (09:07)
[2018-04-25] MEDS: SILDENAFIL 20 MG TABLET PO ×3 (09:08→21:13)
[2018-04-25] MEDS: DOCUSATE 100 MG CAPSULE PO ×2 (09:08→21:11)
[2018-04-25] MEDS: OXYCODONE/ACETAMINOPHEN 5/325 TABLET 1 TAB PO ×2 (09:24→16:54)
[2018-04-25] MEDS: LORazepam 0.5 MG TABLET PO ×3 (09:30→23:26)
--- NOTE | 2018-04-25 09:49 | PC.NURSE ---
RN called to bedside for seizure like activity, witnessed shaking and delay to speech but able to answer questions from staff. No LOC, no lose of bowel function.
--- NOTE | 2018-04-25 10:41 | RT ---
0757 BUDESONDSTEVE WAS GIVEN. UNABLE TO SCAN.
--- NOTE | 2018-04-25 11:13 | PT.IPTN ---
Current Diagnoses Sarcoidosis of lung (04/23/18) Physical Therapy Treatment Note M2 PT-IP Current Condition Start: 04/24/18 12:34 Freq: NEEDED Status: Active Protocol: Document 04/24/18 15:15 HH (Rec: 04/24/18 16:17 [email or web address]) Physical Therapy Current Condition Current Condition Evaluation Date 04/24/18 Treatment Diagnosis Pulmonary Sarcoidosis, SOB, difficulty in walking Onset Date 04/23/18 Weight Bearing Status Weight Bearing Status Weight Bear as Tolerated M3 PT-IP Subjective Start: 04/24/18 12:34 Freq: NEEDED Status: Active Protocol: Document 04/25/18 11:00 HH (Rec: 04/25/18 11:13 [id number]) Subjective Physical Therapy Visit Type Type Discharge Summary Visit Start Time 11:00 Notes Pt is having another episode of seizure upon assessment since 10:50 am . Daughter at bedside and RN notified. Per EMR, Pt has 4 episodes last night and she was found to have elevated prolactin level (up to 72). Unknow cause of seizure and her MRI EEG both showed negative findings. RN states pt is on 1L NC when shes awake but 6L when she sleeps since pt is a mouth breather. RN reports the medical team will cont monitor her seizure activity and pt might need to consult neurologist. Physical Therapy Visit Comments Patient Comments Pt's eyes closed and fully body mildly shaking upon assessment but she is able to answer simple questions with yes/no only. M4 PT-IP Mobility and Gait Start: 04/24/18 12:34 Freq: NEEDED Status: Active Protocol: Document 04/24/18 15:15 HH (Rec: 04/24/18 16:17 [email or web address]) PT-Bed Mobility Assessment Sit to Supine Sit to Supine Independent Scooting Scooting to Edge of Bed Independent Scooting Up and Down in Bed Independent PT-Transfer Assessment Sit to and From Stand Sit to and from Stand Standby Assistance 1 Person Assistance Use of Upper Extremities Equipment Transfer Assistive Device Bed Rail Transfers Transfer Destination Bed Toilet Transfer Technique Stand Step Pivot Transfer Ability Level of Assist Standby Assistance 1 Person Assistance Use of Upper Extremities Comments Mobility Comments Pt was in her bathroom with her spouse upon assessment. Pt stood up from toilet without help but used UEs to push off from grab bars. She was then amb with her back to bed with PRE PRESS MANAGER. Pt c/o fatigue and requested to return to bed . She was independent for bed mobility and able to scoot up and down in bed. O2 sat maintain >92% without NC the whole time. However, pt does appear very fatigue and SOB. Pt was unable to communicate with full sentence. Pt experienced seizure episode as Suman called for a couple minutes after returned to bed. RN notified. Gait Assessment Gait Gait Assistance Required: Contact Guard Assist 1 Person Assist Distance (Feet) 10 Able to Maintain Weight Bearing Status Yes During Gait Assistive Devices Assistive Device Gait Belt Gait Deviations General Gait Pattern Decreased Stride Length Decreased Feet Clearance Factors Limiting Gait Function Factors Limiting Gait Function Decreased Activity Tolerance Decreased Strength Respiratory Distress Comments Gait Comments Pt amb from bathroom toilet to bed with PRE PRESS MANAGER from her spouse. Pt did c/o SOB and fatigue and requested to return to bed for rest. Suman states her walking speed is around the same but she definitely gets tired easier than before. Stair Climbing Assessment Comments Stair Climbing Comments unable to attempt PT-Balance Assessment Sitting Balance and Reactions Static Sitting Balance Ability Normal Dynamic Sitting Balance Ability Normal Standing Balance and Reactions Static Standing Balance Ability Good Dynamic Standing Balance Ability Good M5 PT-IP Objective Assessments Start: 04/24/18 12:34 Freq: NEEDED Status: Active Protocol: Document 04/24/18 15:15 (Rec: 04/24/18 16:17 [email or web address]) Orientation Orientation/Cognition Level of Alertness Alert Orientation Name Age Birthday Month Date Year Day of Week Place Situation Language Function Ability No Deficits Noted Safety Awareness Understands Safety Issues Memory Description No Deficits Noted Comments SOB, difficulty to form full sentence Gross Range of Motion Upper Extremity ROM Assessment Within Functional Limits Lower Extremity ROM Assessment Within Functional Limits Strength Upper Extremity Strength Assessment Within Functional Limits Lower Extremity Strength Assessment Within Functional Limits Coordination Assessment Gross Coordination Gross Coordination WNL Sensation Assessment Sensation Gross Sensation WNL Muscle Tone Muscle Tone WNL Yes M6 PT-IP Treatment Start: 04/24/18 12:34 Freq: NEEDED Status: Active Protocol: Document 04/24/18 15:15 (Rec: 04/24/18 16:17 [email or web address]) Physical Therapy Treatment Education Education Provided Safety M7 PT-IP Assessment and Plan Start: 04/24/18 12:34 Freq: NEEDED Status: Active Protocol: Document 04/25/18 11:00 HH (Rec: 04/25/18 11:13 [id number]) PT Summary Assessment and Plan Summary Assessment Summary Pt cont to have multiple epidsodes of seizure with unknown cause. Pt is medically unstable to participate therapy. Medical team will cont closely monitor pt's seizure activity until pt is safe to work with PT again. Frequency of Treatment Frequency Of Treatment Discharge
--- NOTE | 2018-04-25 11:19 | PC.NURSE ---
Addendum entered by Meghana Mercado R.N. 04/25/18 12:08: Pt has had 2 psuedoseizure episodes thus far this shift. Family reports this activity is a 6/7 severity on a 1-10 scale when asked about how severe these episodes are when compared to home seizures. PT will wait on seeing Pt until medically stable. Original Note: AM shift note Pt is feeling better with her respiratory status this AM. Spo2 on RA is 93%+ Pt up to chair for meal. Taking meds whole with carrier. Notable improvement to resp effort this shift, from this RN's assessment 24 hrs ago. Minimal accessory muscle use. Pt napping, and wakes to voice. No observation of oversedation/post ictal type behavior.
[2018-04-25] MEDS: ENOXAPARIN 40 MG/0.4 ML SYRINGE SUBCUT (11:55)
[2018-04-25] MEDS: ASPIRIN EC 81 MG TABLET PO (14:00)
[2018-04-25] MEDS: MAGNESIUM OXIDE 400 MG TABLET 200 MG PO (14:00)
--- NOTE | 2018-04-25 19:44 | PC.NURSE ---
Addendum entered by Barbara Esposito R.N. 04/25/18 23:37: Page to by this RN at 2300 with return call approx [phone] as pt and spouse state that pt is just miserable. pt seen moaning and states body aches and headache r/t pseudoseizures. pt states just unable to maintain any sort of comfort. pt has been medicated with PRNs and scheduled medications per EMAR. notified of all of above and that pt has had 3 pseudoseizures this evening shift. MD states that he doesn't want to adjust pt's medications without seeing her. This RN told MD that family was wanting him to come see pt and MD states will be in to round in the AM. Pt and spouse notified of the same. Oncoming RN Winnie overheard phone call while awaiting/receiving report and is going to administer pt's 0000 ativan and proceed from there. Pt remains alert but just genuinely in discomfort. Original Note: psudoseizure pt had 1 psudoseizure 1840. mild compared to others witnessed by this RN 04/24/18. Medicated with antispasmatic as had received ativan at 1800. supportive family at bedside.
[2018-04-25] MEDS: LOSARTAN 25 MG TABLET PO (21:11)
[2018-04-25] MEDS: ATORVASTATIN 20 MG TABLET 80 MG PO (21:12)
--- NOTE | 2018-04-25 22:17 | PC.NURSE ---
Shift Summary The patient was sleepy at start of shift. The patient had three spasms through the shift at 1840, 1940, and 2240, fewer than previously. No loss of consciousness on the spasms, though the 1939 spasm lasted about 30 minutes according to the . The patient reported pain with the 0 spasm and was given PRN Tramadol by primary RN Sandra. Expiratory wheeze still present. Patient had generalized pain when assessed, Percocet seems effective at controlling the pain.
[2018-04-25] MEDS: TRAMADOL 50 MG TABLET PO (22:34)
[2018-04-25] MEDS: ACETAMINOPHEN 325 MG TABLET 975 MG PO (22:36)
[2018-04-25] MEDS: BENZONATATE 100 MG CAPSULE PO (23:35)
[2018-04-26] VITALS (12 sets, daily range): BP systolic 135–146; BP diastolic 59–78; PULSE 74–96; RESP 12–24; TEMP 36.3–36.7; O2SAT 94–100
[2018-04-26] MEDS: FUROSEMIDE 40 MG/4 ML VIAL IV ×3 (03:50→18:58)
[2018-04-26] MEDS: SODIUM CHLORIDE 0.9% FLUSH 10 ML IV ×3 (04:05→19:35)
--- NOTE | 2018-04-26 04:52 | PC.NURSE ---
At beginning of shift Pt was very uncomfortable, difficulty breathing and coughing with inspiratory and expiratory wheezes and muscle pain from psuedoseizures with only minor relief from 50 mg Tramadol po and 100 mg Tessalon Perles po. Pt was crying and spouse was upset. Pt eventually was able to get some sleep.
[2018-04-26 06:31] LABS: Add Manual Diff / Slide Review NO; Basophils Absolute Auto 0 /uL (0-100); Eosinophils Absolute Auto 0 /uL (0-450); Hematocrit 35.8 % (36-46); Hemoglobin 12.1 g/dL (12.0-16.0); Lymphocytes Absolute Auto 2300 /uL (1100-4500); Lymphocytes Percent Auto 15.4 % (25-40); Mean Corpuscular HGB Conc 33.9 % (30-36); Mean Corpuscular Volume 91.4 fL (80-100); Monocytes Absolute Auto 1300 /uL (0-900); Monocytes Percent Auto 8.6 % (3-14); Neutrophils Absolute Auto 11100 /uL (1500-7000); Platelet Count 302 X10^3/uL (150-400); Red Blood Cell Count 3.92 X10^6/uL (4.0-5.2); Red Cell Distribution Width 15.9 % (11.6-14.8); White Blood Cell Count 14.7 X10^3/uL (4.5-11.0)
[2018-04-26] MEDS: LORazepam 0.5 MG TABLET PO ×2 (07:45→14:20)
[2018-04-26] MEDS: OXYCODONE/ACETAMINOPHEN 5/325 TABLET 1 TAB PO ×2 (07:45→18:58)
[2018-04-26] MEDS: METOPROLOL ER 50 MG TABLET 100 MG PO ×2 (09:45→21:51)
[2018-04-26] MEDS: SILDENAFIL 20 MG TABLET PO ×3 (09:45→21:50)
[2018-04-26] MEDS: POTASSIUM CHLORIDE 20 MEQ TAB PO ×3 (09:46→16:58)
[2018-04-26] MEDS: CHLORZOXAZONE 500 MG 1 EACH PO (09:47)
[2018-04-26] MEDS: PREGABALIN 50 MG CAPSULE 200 MG PO ×3 (09:47→21:50)
[2018-04-26] MEDS: OXYCODONE ER 10 MG TAB PO ×2 (09:47→21:50)
[2018-04-26] MEDS: CLOPIDOGREL 75 MG TABLET PO (09:47)
[2018-04-26] MEDS: DOCUSATE 100 MG CAPSULE PO ×2 (09:47→21:51)
[2018-04-26] MEDS: ENOXAPARIN 40 MG/0.4 ML SYRINGE SUBCUT (09:49)
[2018-04-26] MEDS: BENZONATATE 100 MG CAPSULE PO ×3 (09:56→23:59)
[2018-04-26] MEDS: Budesonide-Formoterol [Symbicort] 2 PUFF 2 EACH INHALATION ×2 (10:23→20:47)
[2018-04-26] MEDS: ALBUTEROL/IPRATROPIUM 3 ML AMPUL INH (10:23)
--- NOTE | 2018-04-26 11:46 | CM.DPC ---
DCP: continued: case received this morning, EMR reviewed. Dr. Nuñez stopped by and said that pt was wishing to look at Hospice option. She said this had been discussed in past with with one of pt's specialty providers. She had just discussed this with pt and family. Called [facility] and gave referral to Fang. She set up [facility] visit for today at 1100. MARY Schaeffer was alerted to same and updated pt and family. [facility] Brian has just completed the visit. She states the pt and family plan a d/c to home. Consents are signed. DME will be ordered today: transport w/c and oxygen: 4-6 litres (currently on same.). Brian says no other DME need identified as she does not wish her home to look like a hospital Unclear when d/c will be but Cm team will be following. Brian states [facility] does have good availability in terms of sending an RN out to open pt to service: states to continue to coordinate with the [facility] referral center.
[2018-04-26] MEDS: methylPREDNISolone 125 MG/2 ML VIAL 60 MG IV (12:21)
--- NOTE | 2018-04-26 12:32 | PM.PN.1 ---
Subjective Date Patient Seen: 04/26/18 Time Patient Seen: 08:08 Interval history: Patient is sitting up in bed this morning, tearful, at bedside. Had a very rough night. Intense pain which she attributes to the sarcoid in her brain. Muscle spasms and tremors (seizures). She and tell me that she can't continue like this. She was asking her to let her go she didn't want to live like this. She is tolerating food. Tells me that her breathing sounds like she has birds in her chest. Breathing hasn't changed significantly. gives me a copy of her home medication list. Exam Vital Signs (past 8 hours): - 04/26/18 08:34 04/26/18 08:43 04/26/18 08:44 Temperature 97.3 F L Pulse Rate 79 Respiratory Rate 12 Blood Pressure 141/78 H Pulse Oximetry 94 98 97 04/26/18 10:00 04/26/18 10:41 Temperature Pulse Rate Respiratory Rate Blood Pressure Pulse Oximetry 94 94 Fraction of Inspired Oxygen 50 Oxygen Delivery Method Room Air Oxygen Flow Rate 0 Narrative Exam Narrative: General: Well-developed, well-nourished, female, sitting in hospital bed, at bedside, intermittently tearful. Heart: Regular rate and rhythm, no murmurs appreciated Lungs: significantly diminished, inspiratory and expiratory wheezes throughout, no rhonchi Extremities: Warm and well perfused, feet are puffy but not pitting edema, good dp pulses Objective Labs Result Diagrams: 04/26/18 05:43 04/25/18 05:30 Labs: Laboratory Results - last 24 hr 04/26/18 05:43 WBC 14.7 H RBC 3.92 L Hgb 12.1 Hct 35.8 L MCV 91.4 MCH 31.0 MCHC 33.9 RDW 15.9 H Plt Count 302 Neut % (Auto) 76.0 H Lymph % (Auto) 15.4 L [place] % (Auto) 8.6 Eos % (Auto) 0.0 L Baso % (Auto) 0.0 Neut # (Auto) 99719 H Lymph # (Auto) 2300 [place] # (Auto) 1300 H Eos # (Auto) 0 Baso # (Auto) 0 Assessment & Plan Assessment & Plan narrative: Pulmonary sarcoidosis with acute RSV infection: Still intermittenly on oxygen. IV steroids were stopped yesterday and oral ordered today however patient reports mouth and facial swelling with prednisone. Single dose of IV given today. Will review her chart for other alternatives to prednisone. It seems unlikely that she hasn't had this medication before. Continue with nebulizers as needed. Icer Machine Operator recommended hospice at last visit since there isn't more to be done for her lung function. Congestive heart failure exacerbation of diastolic dysfunction acute. Echocardiogram was repeated which showed hyperdynamic ejection fraction. Previously she has responded to diuretics. IV Lasix 40 mg 3 times a day with oral potassium supplement monitor closely her electrolytes hasn't really changed her breathing. Extremity edema at baseline. Will re-evaluate tomorrow morning. 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 The neurologist says she does not have a seizure disorder. Patient does report having sarcoid affecting her brain. She has had a couple of episodes here in the hospital. Although someone ordered a prolactin level which was elevated is previously been elevated before at a high level. She responds to muscle relaxers and ativan dosing last night was insufficient. Will increase dose. Patient is aware that she can request a lower dose. Coronary artery disease. Patient has known history of coronary artery disease with 7 stents placed. At baseline at this point. continue with beta-mesfin, angiotensin receptor mesfin, aspirin and Plavix Essential hypertension. Controlled. Stable continue with diuresis Hyperlipidemia. Continue atorvastatin. Fibromyalgia chronic pain: Have started a long acting oxycodone. Has oxycodone for breakthrough as well as tramadol. Disposition: Home with hospice when arrangements can be made. Time Spent With Patient Time with patient: Greater than 35 minutes Quality VTE Deep Vein Thrombosis/Pulmonary Embolism Present on Admission: Yes
--- NOTE | 2018-04-26 12:36 | P.PN_ITS ---
Subjective Date Patient Seen: 04/26/18 Time Patient Seen: 08:08 Interval history: Patient is sitting up in bed this morning, tearful, at bedside. Had a very rough night. Intense pain which she attributes to the sarcoid in her brain. Muscle spasms and tremors (seizures). She and tell me that she can't continue like this. She was asking her to let her go she didn't want to live like this. She is tolerating food. Tells me that her breathing sounds like she has birds in her chest. Breathing hasn't changed significantly. gives me a copy of her home medication list. Exam Vital Signs (past 8 hours): - 04/26/18 08:34 04/26/18 08:43 04/26/18 08:44 Temperature 97.3 F L Pulse Rate 79 Respiratory Rate 12 Blood Pressure 141/78 H Pulse Oximetry 94 98 97 04/26/18 10:00 04/26/18 10:41 Temperature Pulse Rate Respiratory Rate Blood Pressure Pulse Oximetry 94 94 Fraction of Inspired Oxygen 50 Oxygen Delivery Method Room Air Oxygen Flow Rate 0 Narrative Exam Narrative: General: Well-developed, well-nourished, female, sitting in hospital bed, at bedside, intermittently tearful. Heart: Regular rate and rhythm, no murmurs appreciated Lungs: significantly diminished, inspiratory and expiratory wheezes throughout, no rhonchi Extremities: Warm and well perfused, feet are puffy but not pitting edema, good dp pulses Objective Labs Result Diagrams: 04/26/18 05:43 04/25/18 05:30 Labs: Laboratory Results - last 24 hr 04/26/18 05:43 WBC 14.7 H RBC 3.92 L Hgb 12.1 Hct 35.8 L MCV 91.4 MCH 31.0 MCHC 33.9 RDW 15.9 H Plt Count 302 Neut % (Auto) 76.0 H Lymph % (Auto) 15.4 L [place] % (Auto) 8.6 Eos % (Auto) 0.0 L Baso % (Auto) 0.0 Neut # (Auto) 39353 H Lymph # (Auto) 2300 [place] # (Auto) 1300 H Eos # (Auto) 0 Baso # (Auto) 0 Assessment & Plan Assessment & Plan narrative: Pulmonary sarcoidosis with acute RSV infection: Still intermittenly on oxygen. IV steroids were stopped yesterday and oral ordered today however patient reports mouth and facial swelling with prednisone. Single dose of IV given today. Will review her chart for other alternatives to prednisone. It seems unlikely that she hasn't had this medication before. C ontinue with nebulizers as needed. Maintenance Pipefitter recommended hospice at last visit since there isn't more to be done for her lung function. Congestive heart failure exacerbation of diastolic dysfunction acute. Echocardiogram was repeated which showed hyperdynamic ejection fraction. Previously she has responded to diuretics. IV Lasix 40 mg 3 times a day with oral potassium supplement monitor closely her electrolytes hasn't really changed her breathing. Extremity edema at baseline. Will re-evaluate tomorrow morning. 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 The neurologist says she does not have a seizure disorder. Patient does report having sarcoid affecting her brain. She has had a couple of episodes here in the hospital. Although someone ordered a prolactin level which was elevated is previously been elevated before at a high level. She responds to muscle relaxers and ativan dosing last night was in sufficient. Will increase dose. Patient is aware that she can request a lower dose. Coronary artery disease. Patient has known history of coronary artery disease with 7 stents placed. At baseline at this point. continue with beta-mesfin, angiotensin receptor mesfin, aspirin and Plavix Essential hypertension. Controlled. Stable continue with diuresis Hyperlipidemia. Continue atorvastatin. Fibromyalgia chronic pain: Have started a long acting oxycodone. Has oxycodone for breakthrough as well as tramadol. Disposition: Home with hospice when arrangements can be made. Time Spent With Patient Time with patient: Greater than 35 minutes Quality VTE Deep Vein Thrombosis/Pulmonary Embolism Present on Admission: Yes
[2018-04-26] MEDS: TRAMADOL 50 MG TABLET PO (14:20)
[2018-04-26] MEDS: MAGNESIUM OXIDE 400 MG TABLET 200 MG PO (14:21)
[2018-04-26] MEDS: ASPIRIN EC 81 MG TABLET PO (14:27)
[2018-04-26] MEDS: ACETAMINOPHEN 325 MG TABLET 975 MG PO (14:28)
--- NOTE | 2018-04-26 14:52 | PC.NURSE ---
patient has inspiratory and exp. wheezes. mid 90's on ra. rt tx's prn. states pain is tolerable at 8/10. reported 11/ this am. c/o headache and all over pain. hospice info visit was completed this afternoon, and patient and spouse report that they have signed up with hospice. dr. pimentel notified of same.
--- NOTE | 2018-04-26 15:40 | PM.PFT.1 ---
Pulmonary Function Test Referral & Results Date Patient Seen: 04/26/18 Requesting provider: Varsha Nuñez Results: This is a bedside spirometry done on inpatient The spirometry demonstrates an FVC of 1.11 L which is 42% of predicted. The FEV1 was measured at 0.78 L which is 30% of predicted. The FEV1/FVC ratio was 70 which is 90% of predicted. Interpretation: This study demonstrates severe obstructive lung disease
[2018-04-26] MEDS: LORazepam 1 MG TABLET PO (18:59)
[2018-04-26] MEDS: ATORVASTATIN 20 MG TABLET 80 MG PO (21:50)
[2018-04-26] MEDS: LOSARTAN 25 MG TABLET PO (21:52)
[2018-04-27] VITALS (15 sets, daily range): BP systolic 123–139; BP diastolic 65–93; PULSE 77–103; RESP 18–24; TEMP 36.3–36.9; O2SAT 92–99
[2018-04-27] MEDS: LORazepam 1 MG TABLET PO ×4 (01:15→19:08)
[2018-04-27] MEDS: FUROSEMIDE 40 MG/4 ML VIAL IV ×3 (01:16→19:08)
--- NOTE | 2018-04-27 03:42 | PC.NURSE ---
Addendum entered by Bijan Calderon R.N. 04/27/18 05:29: Pt and daughter continue to sleep soundly. No overt distress noted. Original Note: assumed care from Brooke HERNANDEZ. Pt sleeping soundly, no overt distress. Daughter at bedside. Pt's respiratory rate even and unlaboured. Continue to monitor.
[2018-04-27] MEDS: SODIUM CHLORIDE 0.9% FLUSH 10 ML IV ×4 (04:52→21:44)
[2018-04-27 06:10] LABS: Add Manual Diff / Slide Review NO; Basophils Absolute Auto 0 /uL (0-100); Basophils Percent Auto 0.2 % (0-2); Eosinophils Absolute Auto 0 /uL (0-450); Eosinophils Percent Auto 0.1 % (2-4); Hematocrit 36.1 % (36-46); Hemoglobin 11.8 g/dL (12.0-16.0); Lymphocytes Absolute Auto 1700 /uL (1100-4500); Lymphocytes Percent Auto 16.4 % (25-40); Mean Corpuscular HGB Conc 32.7 % (30-36); Mean Corpuscular Hemoglobin 31.2 PG (26-34); Mean Corpuscular Volume 95.4 fL (80-100); Monocytes Absolute Auto 1200 /uL (0-900); Monocytes Percent Auto 11.9 % (3-14); Neutrophils Absolute Auto 7500 /uL (1500-7000); Neutrophils Percent Auto 71.4 % (50-75); Platelet Count 246 X10^3/uL (150-400); Red Blood Cell Count 3.78 X10^6/uL (4.0-5.2); White Blood Cell Count 10.4 X10^3/uL (4.5-11.0)
[2018-04-27 06:16] LABS: Blood Urea Nitrogen 31 mg/dL (7-17); Calcium 9.4 mg/dL (8.4-10.2); Carbon Dioxide 30 mmol/L (22-32); Chloride 95 mmol/L (98-107); Estimated Glomerular Filt Rate 54.5 mL/min (>60); Glucose 116 mg/dL (80-110); HEMOLYSIS < 15 (0-50); Potassium 4.7 mmol/L (3.4-5.1); Sodium 135 mmol/L (137-145)
[2018-04-27] MEDS: ALBUTEROL/IPRATROPIUM 3 ML AMPUL INH ×2 (06:42→17:02)
[2018-04-27] MEDS: OXYCODONE/ACETAMINOPHEN 5/325 TABLET 1 TAB PO (06:46)
[2018-04-27] MEDS: BENZONATATE 100 MG CAPSULE PO ×3 (06:51→21:44)
[2018-04-27] MEDS: Budesonide-Formoterol [Symbicort] 2 PUFF 2 EACH INHALATION ×2 (08:30→17:02)
[2018-04-27] MEDS: OXYCODONE ER 10 MG TAB PO ×2 (08:41→16:37)
[2018-04-27] MEDS: METOPROLOL ER 50 MG TABLET 100 MG PO ×2 (08:42→21:44)
[2018-04-27] MEDS: SILDENAFIL 20 MG TABLET PO ×3 (08:42→21:43)
[2018-04-27] MEDS: CLOPIDOGREL 75 MG TABLET PO (08:42)
[2018-04-27] MEDS: DOCUSATE 100 MG CAPSULE PO ×2 (08:42→21:43)
[2018-04-27] MEDS: POTASSIUM CHLORIDE 20 MEQ TAB PO ×3 (08:42→16:46)
[2018-04-27] MEDS: ENOXAPARIN 40 MG/0.4 ML SYRINGE SUBCUT (08:43)
[2018-04-27] MEDS: PREGABALIN 50 MG CAPSULE 200 MG PO ×3 (08:43→21:45)
[2018-04-27 11:02] LABS: pH ABG 7.39 (7.35-7.45)
[2018-04-27 11:03] LABS: HCO3 ABG 33 mmol/L (22-26); PCO2 ABG 54.4 mmHg (35-45); PO2 ABG 95 mmHg (80-100); TCO2 ABG 34 mmol/L (21-31)
[2018-04-27 11:04] LABS: Fractionated Inspired Oxygen 2; Oxygen Saturation ABG 97 % (95-100)
[2018-04-27] MEDS: MAGNESIUM OXIDE 400 MG TABLET 200 MG PO (11:24)
--- NOTE | 2018-04-27 11:40 | P.PN_ITS ---
Subjective Date Patient Seen: 04/27/18 Time Patient Seen: 10:36 Interval history: Patient is lying in bed this morning with a cold washcloth on her head. Pain has been reasonably controlled however she feels like her head is starting to hurt and this is the precursor to her seizure-like activity. She has been feeling short of breath and feels like she is more congested. Oxygen saturations remained in the normal range. and family are at bedside. Exam Vital Signs (past 8 hours): - 04/27/18 04:15 04/27/18 06:43 04/27/18 07:20 Temperature 97.3 F L 97.7 F Pulse Rate 77 90 86 Respiratory Rate 24 24 20 Blood Pressure 132/72 135/93 H Pulse Oximetry 99 98 97 04/27/18 08:09 04/27/18 08:31 04/27/18 11:14 Temperature Pulse Rate 91 H Respiratory Rate 24 Blood Pressure Pulse Oximetry 97 98 98 04/27/18 11:15 04/27/18 11:20 Temperature 98.4 F Pulse Rate 91 H Respiratory Rate 18 Blood Pressure 123/68 Pulse Oximetry 92 99 Fraction of Inspired Oxygen 50 Oxygen Delivery Method Room Air Oxygen Flow Rate 2 Narrative Exam Narrative: General: Well-developed, well-nourished, female, moderate distress, answers questions appropriately, somewhat somnolent. Heart: Regular rate and rhythm Lungs: Diminished with diffuse inspiratory and expiratory wheezes Abd: BS+, soft, nontender, nondistended, no rebound, no guarding Extremities: Warm and well perfused, feet are puffy Objective Labs Result Diagrams: 04/27/18 05:07 04/27/18 05:07 Labs: Laboratory Results - last 24 hr 04/27/18 04/27/18 04/27/18 05:07 05:07 10:37 WBC 10.4 RBC 3.78 L Hgb 11.8 L Hct 36.1 MCV 95.4 D MCH 31.2 MCHC 32.7 RDW 16.0 H Plt Count 246 Neut % (Auto) 71.4 Lymph % (Auto) 16.4 L [place] % (Auto) 11.9 Eos % (Auto) 0.1 L Baso % (Auto) 0.2 Neut # (Auto) 7500 H Lymph # (Auto) 1700 [place] # (Auto) 1200 H Eos # (Auto) 0 Baso # (Auto) 0 ABG pH 7.39 ABG pCO2 54.4 H ABG pO2 95 ABG HCO3 33 H ABG Total CO2 34 H ABG O2 Saturation 97 ABG Base Excess 8.0 H FiO2 2 Sodium 135 L Potassium 4.7 Chloride 95 L Carbon Dioxide 30 BUN 31 H Creatinine 1.00 Estimated GFR 54.5 L BUN/Creatinine Ratio 31.0 H Glucose 116 H Calcium 9.4 Assessment & Plan Assessment & Plan narrative: Acute on chronic hypoxic respiratory failure from Pulmonary sarcoidosis and acute RSV infection likely bronchitis as opposed to pneumonia: Feeling short of breath dip spite normal oxygen saturations. ABG showing a mild elevation in her pCO2. Will restart her steroids IV since she does not tolerate oral prednisone. Continue with nebulizers as needed. She she would likely benefit from a trilogy with a FVC at 42% of predicted. she requires both nocturnal and daytime ventilation. Her condition is so severe that BiPAP would be insufficient. Subcontract Manager recommended hospice at last visit since there isn't more to be done for her lung function. Trilogy unit w ould also provide additional comfort for patient. Congestive heart failure exacerbation of diastolic dysfunction acute. Echocardiogram was repeated which showed hyperdynamic ejection fraction. Pre viously she has responded to diuretics. IV Lasix 40 mg 3 times a day with oral potassium supplement monitor closely her electrolytes hasn't really changed her breathing. Extremity edema at baseline. Will re-evaluate tomorrow morning. 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 Patient does report having sarcoid affecting her brain, unclear with this means. These episodes have lessened since we increased her Ativan to 1 mg q.6 hours and she has not had any for almost the last 24 hr. Coronary artery disease. Patient has known history of coronary artery disease with 7 stents placed. At baseline at this point. continue with beta-mesfin, angiotensin receptor mesfin, aspirin and Plavix Essential hypertension. Controlled. Stable continue with diuresis Hyperlipidemia. Continue atorvastatin. Fibromyalgia chronic pain: Have started a long acting oxycodone which has been helpful. Has oxycodone for breakthrough as well as tramadol. Code status: DNR DVT prophylaxis: Lovenox Disposition: Home with hospice when arrangements can be made. thought that he would be able to take care of patient at home however due to her worsening condition he is not sure if he can do this safely. Coordinate with hospice, care management, additional caregivers to determine a safe discharge plan. Time Spent With Patient Time with patient: Greater than 35 minutes Quality VTE Deep Vein Thrombosis/Pulmonary Embolism Present on Admission: Yes
[2018-04-27] MEDS: TRAMADOL 50 MG TABLET PO (13:44)
[2018-04-27] MEDS: ACETAMINOPHEN 325 MG TABLET 975 MG PO ×2 (13:45)
[2018-04-27] MEDS: ASPIRIN EC 81 MG TABLET PO (13:47)
--- NOTE | 2018-04-27 14:16 | PC.NURSE ---
Addendum entered by Praneeth Valiente 04/27/18 14:29: Original Note: Student Nurse Note, 1420 Patient is alert/oriented. Expresses needs and uses call light. Polite and cooperative with care. At least one family member in room all this shift. Labored breathing, wheezes on expiration. Pt reported heavy work of breathing. Nasal cannula changed to Heated high flow oxygen delivered at 40L/min, 35% O2. Pt reported discomfort with breathing at 1300. PRN Tramadol and acetaminophen administered per MAY. Bed down, locked, call light in reach. Hourly patient checks.
--- NOTE | 2018-04-27 15:36 | CM.DPNOTE ---
Addendum entered by Bee Isaac, [facility] [place] 04/27/18 16:17: TC now w/ Darlyn at [facility] 1620. Updated that Dr Nuñez ordered Trilogy machine, it is on pt now and RT expects this will go home w/pt. Darlyn explains Hospice does not support this intervention, typically. It's possible that pt could return home w/Trilogy although Hospice would transition pt onto Bipap. Darlyn unsure next steps and needs to discuss w/network support administrator. She requests the LINUX SYSTEM ADMINISTRATOR working Sunday call at 0800 when Darlyn gets into the office to review next steps. P: Pending update from Hospice and discussion w/ Dr Nuñez Sunday (?) At this point, unsure whether Hospice is an option if pt remains on Trilogy. Following closely. This LINUX SYSTEM ADMINISTRATOR unable to update pt/family this afternoon. Let evening RN know notes were updated. JW Original Note: Reviewed chart. Spoke w/ Dr Nuñez throughout the morning, also w/MARY Hollingsworth and pt/family; attempting to coordinate a safe DCP for pt. Pt is eager to return home and would like Hospice service. TC to Darlyn at [facility]; she confirms there is a spot held for pt Sunday morning between 0399-0224. All DME delivered today to pt/spouse's home. Dr Nuñez notifies this LINUX SYSTEM ADMINISTRATOR spouse feeling concerned he may not be able to manage pt's ADLs once home ? Met w/ pt, spouse, and extended family at bedside, had lengthy conversation. Inevitably, spouse decides he is confident bringing pt home tomorrow, Sunday, w/Hospice in place and knows he can call a cg agency as needed for assistance. According to spouse, family all live out of town and will not be available to assist him after Sunday. Pt does have friends and neighbors he can ask to stay w/pt while he runs errands. Provided spouse the Senior Resource Guide w/pepper for cg agencies. Then learned that Dr Nuñez ordered a Trilogy machine to DC home w/pt. This will likely bring pt much symptom relief although this LINUX SYSTEM ADMINISTRATOR, and Beatris gardner/Paty, unaware if Hospice will continue pt on service w/ Trilogy machine at home? Will they cover this equipment? RT Dewey explained to this LINUX SYSTEM ADMINISTRATOR pt now has Trilogy machine on, fitted, and this will go home w/her. Pt will also require a neb machine for neb treatments PRN. Continued coordination needed. Will contact Darlyn gardner/ LISSY to update on above. Pt will also require BLS transport, per family. This LINUX SYSTEM ADMINISTRATOR apprehensive to arrange BLS this afternoon (for a morning discharge). Will place call to [facility]. JENNIFFER Narvaez
[2018-04-27] MEDS: OXYCODONE IR 5 MG TABLET PO (16:36)
[2018-04-27] MEDS: methylPREDNISolone 4 MG TABLET 8 MG PO ×2 (16:38→21:44)
--- NOTE | 2018-04-27 18:34 | PC.NURSE ---
carlene note Pt c/o headache, which usually precedes seizures, but pt denies seizure like activity at this time. Medicated with long and short acting oxycodone. Pt Still c/o headache 2 hours later. No other meds available at this time. Called Dr. Nuñez to discuss. Pt states morphine reaction is seeing scary things. Home med list, current med list and allergies reviewed with Dr. Nuñez. New order received for hydromorphone orally.
[2018-04-27] MEDS: HYDROMORPHONE 2 MG TABLET PO (19:08)
[2018-04-27] MEDS: ATORVASTATIN 20 MG TABLET 80 MG PO (21:44)
[2018-04-27] MEDS: LOSARTAN 25 MG TABLET PO (21:44)
[2018-04-28] MEDS: LORazepam 1 MG TABLET PO ×3 (00:57→11:46)
[2018-04-28 01:00] VITALS: BP 124/84; PULSE 86; RESP 20; TEMP 36.4; O2SAT 95
[2018-04-28 01:15] VITALS: O2SAT 94
[2018-04-28] MEDS: OXYCODONE ER 10 MG TAB PO ×2 (01:16→10:19)
[2018-04-28 05:10] VITALS: BP 135/76; PULSE 85; RESP 24; TEMP 36.3; O2SAT 95
[2018-04-28] MEDS: HYDROMORPHONE 2 MG TABLET PO (05:44)
[2018-04-28 05:45] LABS: BUN Creatinine Ratio 26.7 (6-22); Blood Urea Nitrogen 24 mg/dL (7-17); Calcium 9.5 mg/dL (8.4-10.2); Carbon Dioxide 32 mmol/L (22-32); Chloride 95 mmol/L (98-107); Estimated Glomerular Filt Rate > 60.0 mL/min (>60); Glucose 138 mg/dL (80-110); HEMOLYSIS < 15 (0-50); Sodium 135 mmol/L (137-145)
[2018-04-28 05:46] LABS: B Type Natriuretic Peptide < 100 (<100)
[2018-04-28] MEDS: BENZONATATE 100 MG CAPSULE PO (05:48)
[2018-04-28 05:56] LABS: Potassium 5.5 mmol/L (3.4-5.1)
[2018-04-28 07:45] VITALS: BP 131/74; PULSE 74; RESP 18; TEMP 36.6; O2SAT 96
[2018-04-28] MEDS: ALBUTEROL/IPRATROPIUM 3 ML AMPUL INH (08:43)
[2018-04-28] MEDS: Budesonide-Formoterol [Symbicort] 2 PUFF 2 EACH INHALATION (08:43)
[2018-04-28 09:15] VITALS: PULSE 75; RESP 22; O2SAT 97
--- NOTE | 2018-04-28 09:48 | CM.DPC ---
Addendum entered by JENNIFFER Harding 04/28/18 11:08: Family discussed DCP with Dr. Nuñez and would like to d/c home today w/ hospice admission tomorrow morning. DME was already delivered. Called [facility]: agreeable w/ plan and would like patient to have comfort meds with at least 5 day supply. Met with family and patient: patient is comfortable on 3l o2. They are not interested in pursuing trilogy at this time and do not believe high flow is needed. Family discussed these wishes with Dr. Nuñez. She is agreeable to discharge. Called [facility] and they will grain picker patient at 1400. RN and family notified. Call from [facility]: she stated they do indeed have a contract with Hospice and does believe patient would be an ideal candidate should she require further RT interventions during hospice. Paris will follow up with Hospice/[facility] should the patient and family wish to pursue trilogy. Plan: Patient to discharge home via BLS and supportive family today at 1400. Hospice will meet patient and family at home tomorrow (Sunday) at 1000. Original Note: DCP/cont Called [facility]n: able to accept patient today at 10am if not will have to be tomorrow. Unable to support Trilogy intervention. Spoke with Dr. Nuñez: patient is able to discharge home with hospice with high flow o2 but will not make a 1000 opening. Will plan for discharge tomorrow via BLS. Dr. Nuñez signed Cert of med need for BLS. Per [facility] : they are able to admit on Sunday at [phone]. [facility] and they are able to grain picker patient up patient at [phone]. Plan: Home with hospice and high flow o2 on Sunday via BLS transport at [phone].
[2018-04-28] MEDS: CHLORZOXAZONE 500 MG 1 EACH PO (09:51)
[2018-04-28] MEDS: DOCUSATE 100 MG CAPSULE PO (09:55)
[2018-04-28] MEDS: CLOPIDOGREL 75 MG TABLET PO (09:56)
[2018-04-28] MEDS: METOPROLOL ER 50 MG TABLET 100 MG PO (09:57)
[2018-04-28] MEDS: methylPREDNISolone 4 MG TABLET 8 MG PO ×2 (09:57→13:17)
[2018-04-28] MEDS: MAGNESIUM OXIDE 400 MG TABLET 200 MG PO (09:58)
[2018-04-28] MEDS: SILDENAFIL 20 MG TABLET PO (09:58)
[2018-04-28] MEDS: SODIUM CHLORIDE 0.9% FLUSH 10 ML IV (10:03)
[2018-04-28] MEDS: ASPIRIN EC 81 MG TABLET PO (10:03)
[2018-04-28] MEDS: PREGABALIN 50 MG CAPSULE 200 MG PO ×2 (10:18→13:59)
[2018-04-28] MEDS: OXYCODONE IR 5 MG TABLET PO ×2 (10:18→14:00)
--- NOTE | 2018-04-28 11:27 | PM.DS.1 ---
History of Present Illness Date Patient Seen: 04/28/18 Time Patient Seen: 08:27 Chief complaint: difficulty breathing, thinks a possible infection Narrative: From H&P by Dr. Fox 04/23/2018 73-year-old female, nonsmoker with extensive complicated medical history presents to the emergency department with a chief complaint of difficulty breathing and productive sputum worsening over the past week. She does have access to home oxygen which is normally used sparingly at night but she has been increasing the use any even now has used it nearly around the clock for the past day or 2. She denies nausea or vomiting. She denies fever or shaking chills. She denies chest pain or shortness of breath. She is quite fatigued. She states her shortness of breath is worse with exertion but denies any change with position. Discharge Providers Date of admission: 04/23/18 14:52 Primary care physician: Pedro Lynn MD Consults: 04/24/18 07:43 Consult to Physical Therapy Evaluate & Treat Comment: Physician Instructions: Evaluate and Treat Discharge provider: Varsha Nuñez DO Discharge Date: 04/28/18 Summary Discharge Diagnosis: Acute hypercapneic and hypercapneic on chronic hypoxic respiratory failure RSV bronchitis Sarcoidosis affecting the lungs Acute exacerbation of chronic diastolic heart failure with preserved ejection fraction pseudoseizures Anxiety Coronary artery disease Essential hypertension Hyperlipidemia Fibromyalgia Chronic pain Obesity Hospital Course: Acute hypercapneic on chronic hypoxic respiratory failure from pulmonary sarcoidosis and acute RSV infection likely bronchitis as opposed to pneumonia: Viral infection so was not treated with antibiotics. She was given supplemental oxygen and steroids. She continued to feeling short of breath desspite normal oxygen saturations. ABG showing a mild elevation in her pCO2. She has a prednisone allergy so was given oral methylprednisolone. Nebulizers did not seem to make much difference to her subjectively. She had some improvement on heated high flow nasal canula. She qualified for trilogy with a FVC at 42% of predicted and did not tolerate the mask so the trial was incomplete. She may benefit from this in the future. Concrete Puddler recommended hospice at last visit since there isn't more to be done for her lung function. At discharge she appeared comfortable with simple nasal canula. High flow was ordered for home. Congestive heart failure exacerbation of diastolic dysfunction acute. Echocardiogram was repeated which showed hyperdynamic ejection fraction. Previously she had responded to diuretics. IV Lasix 40 mg 3 times a day with oral potassium supplement did not make much difference. Extremity edema at baseline with worsening here. Home bumex dosing was continued at discharge. 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 Patient does report having sarcoid affecting her brain, unclear what this means and I don't see evidence on her MRI. These episodes resolved with regularly schedule lorazepam at 1 mg q 6 hours. Given her unresponsiveness to the above treatments she and decided that it was time to transition to hospice care. They had consult and decided to go this direction and she was discharged on 04/28/18 with hospice intake on 04/29/18. She has a very supportive family. has contact information for additional support agencies as the need arises. Coronary artery disease. Patient has known history of coronary artery disease with 7 stents placed. At baseline at this point. continue with beta-mesfin, angiotensin receptor mesfin, aspirin and Plavix Essential hypertension. Controlled. Hyperlipidemia. Continue atorvastatin. Fibromyalgia chronic pain: Have started a long acting oxycodone which has been helpful. Has oxycodone for breakthrough as well as tramadol. Escalated and required a single dose of hydromorphone the night prior to discharge which was effective at reducing her pain. Her discharge regimen was 10 mg long acting oxycodone three times daily with tramadol, oxycodone, and hydromorphone for breakthrough. Written instructions were given. Code status: DNR DVT prophylaxis: Lovenox Status at Discharge Cognitive/behavioral status at discharge: at baseline Functional status at discharge: uses cane/walker Overall status at discharge: patient is not back to baseline Time Spent with Patient Greater than 30 minutes Exam Vital Signs (past 8 hours): - 04/28/18 05:10 04/28/18 07:45 04/28/18 09:15 Temperature 97.4 F L 97.8 F Pulse Rate 85 74 75 Respiratory Rate 24 18 22 Blood Pressure 135/76 131/74 Pulse Oximetry 95 96 97 Fraction of Inspired Oxygen 35 Oxygen Delivery Method Heated High Flow Oxygen Flow Rate 40 Narrative Exam Narrative: General: Well-developed, well-nourished, female, moderate distress, answers questions appropriately, somewhat somnolent. Heart: Regular rate and rhythm Lungs: Diminished with diffuse inspiratory and expiratory wheezes Abd: BS+, soft, nontender, nondistended, no rebound, no guarding Extremities: Warm and well perfused, feet are puffy Objective Labs Result Diagrams: 04/27/18 05:07 04/28/18 05:06 Labs: Laboratory Results - last 24 hr 04/28/18 04/28/18 05:06 05:06 Sodium 135 L Potassium 5.5 H Chloride 95 L Carbon Dioxide 32 BUN 24 H Creatinine 0.90 Estimated GFR > 60.0 BUN/Creatinine Ratio 26.7 H Glucose 138 H Calcium 9.5 B-Natriuretic Peptide < 100 Discharge Plan Discharge Plan Discharge Problem: Acute dyspnea, Hypoxia Patient Disposition: Hospice - Home Discharge Med Rec/Prescriptions Prescriptions: New methylprednisolone 4 mg Tablet 4 mg PO BID Qty: 20 RF: 0 guaifenesin 100 mg/5 mL Liquid 200 mg PO Q4HR PRN (Reason: Cough) Qty: 300 RF: 0 hydromorphone 2 mg Tablet 2 mg PO Q4HR PRN (Reason: Pain, Severe (7-10)) Qty: 30 RF: 0 docusate sodium 100 mg Capsule 200 mg PO BID Qty: 60 RF: 0 lorazepam 1 mg Tablet 1 mg PO Q6HR Qty: 40 RF: 0 oxycodone 5 mg Tablet 5 mg PO Q3HR PRN (Reason: Pain, Moderate (4-6)) Qty: 30 RF: 0 oxycodone [OxyContin] 10 mg Tablet,Oral Only,Ext.Rel.12 Hr 10 mg PO Q8H Qty: 30 RF: 0 Continued bumetanide 1 MG tablet 1 mg PO BID Qty: 0 RF: 0 benzonatate [Tessalon Perles] 100 MG capsule 100 mg PO TID Qty: 0 RF: 0 primidone 50 mg tablet 50 mg PO BEDTIME Qty: 30 RF: 3 atorvastatin 80 mg tablet 80 mg PO DAILY RF: 0 pregabalin [Lyrica] 200 mg capsule 200 mg PO TID RF: 0 losartan 25 mg tablet 25 mg PO BEDTIME RF: 0 sildenafil (antihypertensive) 20 mg tablet 20 mg PO TID RF: 0 clopidogrel [Plavix] 75 mg tablet 75 mg PO DAILY RF: 0 chlorzoxazone 500 mg tablet 500 mg PO BID RF: 0 aspirin 81 mg Tablet,Delayed Release (Dr/Ec) 81 mg PO QNOON RF: 0 acetaminophen 500 mg Tablet 1,000 mg PO TID RF: 0 magnesium 250 mg Tablet 250 mg PO QNOON RF: 0 diphenhydramine-acetaminophen [Tylenol PM Extra Strength] 25-500 mg Tablet 2 tab PO BEDTIME RF: 0 omega-3 fatty acids-fish oil [Fish Oil] 300-1,000 mg Capsule 300 mg PO BEDTIME RF: 0 Symbicort 160-4.5 mcg/actuation Hfa Aerosol Inhaler 2 puff INHALATION BID PRN (Reason: Shortness Of Breath) RF: 0 L.acidophilus-Bifido.longum [Probiotic Pearls] 15 mg (1 billion cell) Capsule,Delayed Release(Dr/Ec) 1 cap PO QPM RF: 0 Estroven 155 mg Capsule 1 cap PO BEDTIME RF: 0 ipratropium-albuterol 3 ML solution for nebulization 3 ml INH Q4H PRN (Reason: Shortness Of Breath) RF: 0 estradiol-norethindrone acet [Mimvey] 1-0.5 mg tablet 1 tab PO BEDTIME RF: 0 tramadol 50 MG tablet 50 mg PO TID PRN (Reason: pain) RF: 0 pantoprazole [Protonix] 40 MG tablet,delayed release (DR/EC) 40 mg PO BID RF: 0 folic acid 1 mg tablet 1 mg PO QNOON RF: 0 [place]-D 24 Hour 180-240 mg tablet extended release 24 hr 1 tab PO DAILY RF: 0 metoprolol succinate 100 mg tablet extended release 24 hr 100 mg PO BID RF: 0 ondansetron HCl 4 mg Tablet 4 mg PO TID-QID PRN (Reason: nausea) RF: 0 pramipexole [Mirapex] 0.25 mg Tablet 0.25 mg PO TID PRN (Reason: tremors) RF: 0 Discontinued oxycodone-acetaminophen 5-325 mg tablet 1 tab PO BID RF: 0 Follow up/Referrals: Pedro Lynn MD [Primary Care Provider] - Provider Discharge Instructions Diet: Diet as Tolerated Activity: as tolerated Cold/Heat Therapy: as needed Oxygen: high flow nasal canula or trilogy Skin/Wound/Dressing Care Report to your healthcare provider any signs of infection, such as:: chills, fever, night sweats and increased pain Other wound treatment: turn patient every 2 hours Visit Report/Discharge Packet Instructions: Respiratory Syncytial Virus, DI for Respiratory Syncytial Virus -- Adults Visit Report Forms: Stroke Signs & Symptoms Discharge Data Primary Care Provider: Pedro Lynn Attending Provider: Pedro Lynn Admit Date/Time: 04/23/18 14:52 Discharges patient from system. Discharge Date/Time: 04/28/18 14:41 Quality VTE Deep Vein Thrombosis/Pulmonary Embolism Present on Admission: Yes
[2018-04-28 12:42] VITALS: O2SAT 95
--- NOTE | 2018-04-28 13:15 | RT ---
TRILOGY NOTE: Pt going Hospice to home today. Per Marine in care management, Hospice cannot take a pt on [facility]. Pt was just qual'd for [facility] 2 days ago as an inpatient. I contacted Beatris at [facility] (DME whom supplied Trilogy) to inform. Beatris believes Hospice can take patient, as [facility] has a contract with [facility]. Beatris will contact care enrollment management coordinator tomorrow. Trilogy was packed up and will be sent with pt home. Beatris also knows pt did not tolerate the Trilogy well last night, and c/o the mask. A new zaheer/nasal interface can be considered. Marine informed of above.
[2018-04-28] MEDS: guaiFENesin Solution 100 MG/5 ML UDC 200 MG PO (13:16)
--- NOTE | 2018-04-28 13:46 | PC.NURSE ---
Pt given dc paperwork and meds from pharmacy. Spouse is taking scripts to be filled at [facility]. Ambulance due at 1400. Will go home on O2 at 3L. Pt reports she is comfortable with ativan and oxycodone given in the last few hours.
--- NOTE | 2018-04-28 14:38 | PC.NURSE ---
Pt had some mild seizure activity after administration of oxycodone at 1430, just before the ambulance crew arrived. Was oriented and able to open her eyes after episode. (Twitching to upper body and upper exts noted). No gross movements or incontinence. Transported into ambulance and has been taken home where her spouse is waiting for her. Pt expressing calm acceptance of her impending .
== END 2018-04-28 14:41 | disposition hospice, home (50) | DRG 189 ==
LOC: ED 10:50 → AC 14:53
PROVIDERS: Family Medicine; Admitting Provider Family Medicine; Emergency Provider Emergency Medicine; PCP Family Medicine; Visit Provider Family Medicine
DX: J96.21 Acute and chronic respiratory failure with hypoxia (principal); I50.33 Acute on chronic diastolic (congestive) heart failure; J20.5 Acute bronchitis due to respiratory syncytial virus; D86.0 Sarcoidosis of lung; Z99.81 Dependence on supplemental oxygen; I11.0 Hypertensive heart disease with heart failure; F44.5 Conversion disorder with seizures or convulsions; M79.7 Fibromyalgia; E78.5 Hyperlipidemia, unspecified; I25.10 Atherosclerotic heart disease of native coronary artery without angina pectoris; G89.29 Other chronic pain; E66.9 Obesity, unspecified; Z68.36 Body mass index [BMI] 36.0-36.9, adult
CPT/HCPCS: 36415; 36591; 36600; 71045; 71275; 80048; 80053; 81003; 82550; 82805; 83690; 83880; 84146; 84484; 85025; 85610; 85730; 87070; 87205; 87633; 93005; 94010; 94640; 94760; 94762; 97162; 97530; 99223; 99233; 99239; 99285; C8929; J1650; J1940; J2930; J7613; Q9967